=== PATIENT | female | born 1970 | race Two or more races ===

== ENCOUNTER 2025-01-29 09:56 | Inpatient (IN) | payer MEDICAID, OTHER ==
[~2025-01-29] VITALS: Ht 162.6 cm; Wt 86.3 kg
--- NOTE | 2025-01-29 11:28 | DVH ---
CLINICAL INDICATION: Knee pain x 3 weeks TECHNIQUE: 3 radiographic views of the right knee were obtained. Comparison: None FINDINGS/IMPRESSION: There is no evidence of acute fracture or dislocation. The visualized joint space is well maintained. The alignment is anatomical. There is no radiopaque foreign body.
--- NOTE | 2025-01-29 12:05 | ED.PDOC ---
Musculoskeletal HPI Comments 54F presents to the ER w/ no prior MHx associated to the c/c of right lower extremity. Pt has had non traumatic non radiating pain to the right patella. Pt notes on trying over the counter medications for which did not help. Pt is unable to ambulate w/ the right leg due from the pain for which has been worsening over the past few weeks. Pt has also recently moved from [place]. Denies trauma to the knee or recent fall Denies skin color changes around the knee Denies masses around the knee Denies popping/locking/giving out of the knee Denies fever chills night sweats nausea vomiting Denies previous surgeries to the knee nor significant injury Chief Complaint: Lower Extremity Time Seen by MD: 11:45 Reviewed Notes: Nurses Notes, Medications, Allergies Allergies: Coded Allergies: Penicillins (Verified Allergy, Unknown, 01/29/25) Home Meds Reported Medications Alprazolam (Xanax) 1 Mg Tab, 1 TAB PO HS, #60 TAB 01/29/25 Losartan Potassium (Losartan Potassium) 100 Mg Tab, 1 TAB PO DAILY 01/29/25 Rosuvastatin Calcium (Rosuvastatin Calcium) 20 Mg Tab, 1 TAB PO HS 01/29/25 Information Source: Patient Mode of Arrival: Wheelchair Location: Right Extremity Location: Knee Timing: Weeks Prehospital treatment: None Severity: Moderate Able to Move Extremity: No Bear Weight: Limited Pain: Severe Hand Dominance: Right Mechanism: Other (fal) Circumstances: Tripped Onset of Symptoms: Spontaneous Symptoms: Pain DVT Risk Factors: NONE Associated signs and symptoms: Knee pain Past Medical History PAST MEDICAL HISTORY: Denies Surgical History: Denies all surgeries ELEVATOR SERVICE MECHANIC History: No Pertinent ELEVATOR SERVICE MECHANIC History Family History Family History: Reviewed,noncontributory to illness, Unknown Social History Smoker: Non-Smoker Alcohol: Denies ETOH Use Drugs: Denies Drug Use Lives In: Home Constitutional: denies: chills, diaphoresis, fatigue, fever, malaise, sweats, weakness, others EENTM: denies: blurred vision, double vision, ear bleeding, ear discharge, ear drainage, ear pain, ear ringing, eye pain, eye redness, hearing loss, mouth pain, mouth swelling, nasal discharge, nose bleeding, nose congestion, nose pain, photophobia, tearing, throat pain, throat swelling, voice changes, others Respiratory: denies: cough, hemoptysis, orthopnea, SOB at rest, shortness of breath, SOB with excertion, stridor, wheezing, others Cardiovascular: denies: chest pain, dizzy spells, diaphoresis, Dyspnea on exertion, edema, irregular heart beat, left arm pain, lightheadedness, palpitations, PND, syncope, others Gastrointestinal: denies: abdomen distended, abdominal pain, blood streaked bowels, constipated, diarrhea, dysphagia, difficulty swallowing, hematemesis, melena, nausea, poor appetite, poor fluid intake, rectal bleeding, rectal pain, vomiting, others Genitourinary: denies: abnormal vagina bleeding, burning, dyspareunia, dysuria, flank pain, frequency, hematuria, incontinence, pain, , vagina discharge, urgency, others Neurological: denies: dizziness, fainting, headache, left sided numbness, left sided weakness, numbness, paresthesia, pre-existing deficit, right sided numbness, right sided weakness, seizure, speech problems, tingling, tremors, weakness, others Musculoskeletal: reports: others (knee pain); denies: back pain, gout, joint pain, joint swelling, muscle pain, muscle stiffness, neck pain Integumetry: denies: bruises, change in color, change in hair/nails, dryness, laceration, lesions, lumps, rash, wounds, others Allergic/Immunocompromised: denies: Difficulty Healing, Frequent Infections, Hives, Itching, others Hematologic/Lymphatic: denies: anemia, blood clots, easy bleeding, easy bruising, swollen glands, others Endocrine: denies: excessive hunger, excessive sweating, excessive thirst, excessive urination, flushing, intolerance to cold, intolerance to heat, unex plained weight gain, unexplained weight loss, others Psychiatric: denies: anxiety, bipolar disorder, depression, hopeless, panic disorder, schizophrenia, sleepless, suicidal, others All Other Systems: Reviewed and Negative Physical Exam General Appearance: No Apparent Distress, Normal HEENT: Normal ENT Inspection, Pharynx Normal, TMs Normal Neck: Full Range of Motion, Non-Tender, Normal, Normal Inspection Respiratory: Chest Non-Tender, Lungs Clear, No Accessory Muscle Use, No Respiratory Distress, Normal Breath Sounds Cardiovascular: No Edema, No JVD, No Murmur, No Gallop, Normal Peripheral Puls es, Regular Rate/Rhythm Breast Exam: Deferred Gastrointestinal: No Organomegaly, Non Tender, No Pulsatile Mass, Normal Bowel Sounds, Soft Genitalia: Deferred Pelvic: Deferred Rectal: Deferred Extremities: No calf tenderness, Normal capillary refill, Normal inspection, Normal range of motion, Non-tender, No pedal edema Musculoskeletal : Location: Right Extremity Location: Knee (no gross abnormality to patella on inspection, no echymosis, swelling or open wounds, subjective pain with flexion and extension of knee.) Apperance: Normal Neurologic: Alert, streaming media specialist II-XII nml as Tested, No Motor Deficits, Normal Affect, Normal Mood, No Sensory Deficits Cerebellar Function: Normal Reflexes: Normal Skin: Dry, Normal Color, Warm Lymphatic: No Adenopathy Was a procedure done? Was a procedure done?: No Differential Diagnosis EXT Differential Diagnosis: Deep Vein Thrombosis, Fracture, Sprain, Dislocation, Bursitis, Other X-Ray, Labs, Meds, VS Vital Signs Date Time Temp Pulse Resp B/P (MAP) Pulse Ox O2 Delivery O2 Flow Rate FiO2 01/29/25 15:17 65 18 139/77 01/29/25 14:30 97.7 65 18 151/74 (99) 98 97.7 01/29/25 14:30 65 18 151/74 01/29/25 14:30 Room Air* 0 21 01/29/25 10:10 98.4 80 18 156/92 (113) 97 98.4 Lab Test 01/29/25 13:19 Range/Units White Blood Count 5.2 4.4-10.8 10^3/uL Red Blood Count 4.23 4.0-5.20 10^6/uL Hemoglobin 12.7 12.2-16.2 g/dL Hematocrit 37.7 36.0-46.0 % Mean Corpuscular Volume 89.0 80.0-100.0 fL Mean Corpuscular Hemoglobin 30.1 28.0-32.0 pg Mean Corpuscular Hemoglobin Concent 33.8 32.0-36.0 g/dL Red Cell Distribution Width 14.5 H 11.8-14.3 % Platelet Count 270 140-450 10^3/uL Mean Platelet Volume 7.2 6.9-10.8 fL Neutrophils (%) (Auto) 41.9 37.0-80.0 % Lymphocytes (%) (Auto) 48.2 10.0-50.0 % Monocytes (%) (Auto) 8.5 0.0-12.0 % Eosinophils (%) (Auto) 0.5 0.0-7.0 % Basophils (%) (Auto) 0.9 0.0-2.0 % Neutrophils # (Auto) 2.2 1.6-8.6 10 ^3/uL Lymphocytes # (Auto) 2.5 0.4-5.4 10 ^3/uL Monocytes # (Auto) 0.4 0-1.3 10 ^3/uL Eosinophils # (Auto) 0 0-0.8 10 ^3/uL Basophils # (Auto) 0 0-0.2 10 ^3/uL Nucleated Red Blood Cells 0.1 % Erythrocyte Sedimentation Rate 7 0-20 mm/hr Sodium Level 141 136-145 mmol/L Potassium Level 3.8 3.5-5.1 mmol/L Chloride Level 107 98-107 mmol/L Carbon Dioxide Level 26 20-31 mmol/L Anion Gap 8 5-15 Blood Urea Nitrogen 12 9-23 mg/dL Creatinine 0.74 0.550-1.02 mg/dL Glomerular Filtration Rate Calc 97 >90 mL/min BUN/Creatinine Ratio 16.2 10.0-20.0 Serum Glucose 107 H 74-106 mg/dL Calcium Level 9.3 8.7-10.4 mg/dL C-Reactive Protein High Sensitivity 1.06 H <1.0 mg/dL PATIENT: AMANDAANNACCT: [id number]: [id number] : 1970 LOC: ER ROOM / BED: / AGE / SEX: 54 / F ADM STATUS: REG ER SERVICE 1211 ORDERING PHYSICIAN: PELON VALLADARES NP PROCEDURE(s): RLDVT - RT Lower DVT REASON: PAIN TO RLE ORDER NUMBER(s): [id number], ACCESSION NUMBER(s): [id number] Technique: Real-time ultrasound imaging, with color Doppler and compression of the right common femoral vein, femoral vein, greater saphenous vein, and popliteal vein. Indication: PAIN TO RLE Comparison: None Findings: There is normal compressibility and flow augmentation in all of the imaged deep veins. There are no filling defects. Impression: No evidence of DVT in the right lower extremity ATED BY: RAHAT DUNCAN MD DICTATED DATE/TIME: 01/29/251312 SIGNED BY: RAHAT DUNCAN MD SIGNED DATE/TIME: 01/29/251312 CC: PATIENT: DIPESH PATEL ACCT: [id number] UNIT: [id number] : 1970 LOC: ER ROOM / BED: / AGE / SEX: 54 / F ADM STATUS: REG ER SERVICE 1050 ORDERING PHYSICIAN: PELON VALLADARES INDUSTRIAL GAS PRODUCTION OPERATOR PROCEDURE(s): RKN3 - R KNEE 3V XRAY REASON: Knee pain x 3 weeks ORDER NUMBER(s): [id number], ACCESSION NUMBER(s): [id number] CLINICAL INDICATION: Knee pain x 3 weeks TECHNIQUE: 3 radiographic views of the right knee were obtained. Comparison: None FINDINGS/IMPRESSION: There is no evidence of acute fracture or dislocation. The visualized joint space is well maintained. The alignment is anatomical. There is no radiopaque foreign body. ATED BY: DENISE COVARRUBIAS MD DICTATED DATE/TIME: 01/29/251124 SIGNED BY: DENISE COVARRUBIAS MD SIGNED DATE/TIME: 01/29/251124 CC: X-Ray, Labs, Meds, VS Comment 54F presents to the ER w/ no prior MHx associated to the c/c of right lower extremity. The patient presents with s/s consistent with intractable knee pain CBC, BMP, UA, SED RATE, CRP ORDERED KNEE XRAY NEGATIVE FOR ACUTE FINDINGS ORDERED US OF LOWER EXTREMITY TO R/O DVT IN THE ER THE PATIENT RECEIVED MORPHINE X1 WITH NO ADVERSE REACTIONS. RESULTS WERE RELAYED TO THE PATIENT THE PATIENT FEELS UNCOMFORTABLE BEING DISCHARGED FROM AT THIS TIME DUE TO PAIN AND INABILITY TO BEAR WEIGHT ON THE AFFECTED EXTREMITY. The patient's workup reveals that the patient needs further evaluation and/or treatment for the above medical conditions. Patient verbalized understanding of the above and is awaiting further evaluation by the admitting service. Time of 1ST Reevaluation: 12:15 Reevaluation 1ST: Unchanged Patient Education/Counseling: Diagnosis, Treatment, Prognosis Family Education/Counseling: No Family Present Departure 1 Departure Time of Disposition: 13:53 Impression: Primary Impression: Intractable pain Additional Impression: Knee pain Qualified Codes: M25.561 - Pain in right knee Disposition: 01 HOME / SELF CARE / HOMELESS Condition: Fair Critical Care Note Critical Care Time?: No Stability Stability form required: No Heart Score Heart Score: Heart Score Response (Comments) Value History N/A 0 EKG N/A 0 Age N/A 0 Risk Factors N/A 0 Troponin N/A 0 Total 0 I personally scribed for PELON VALLADARES NP ([email or web address]) on 01/29/25 at 12:05. E lectronically submitted by Dago Stout ([email or web address]). PELON VALLADARES NP Jan 29, 2025 12:05
--- NOTE | 2025-01-29 13:15 | DVH ---
Technique: Real-time ultrasound imaging, with color Doppler and compression of the right common femo ral vein, femoral vein, greater saphenous vein, and popliteal vein. Indication: PAIN TO RLE Comparison: None Findings: There is normal compressibility and flow augmentation in all of the imaged deep veins. There are no f illing defects. Impression: No evidence of DVT in the right lower extremity
[2025-01-29 13:40] LABS: Basophils # (auto) 0 10 ^3/uL (0-0.2); Basophils % (auto) 0.9 % (0.0-2.0); Eosinophils # (auto) 0 10 ^3/uL (0-0.8); Eosinophils % (auto) 0.5 % (0.0-7.0); Hematocrit 37.7 % (36.0-46.0); Hemoglobin 12.7 g/dL (12.2-16.2); Lymphocytes # (auto) 2.5 10 ^3/uL (0.4-5.4); Lymphocytes % (auto) 48.2 % (10.0-50.0); Mean Corpuscular Hemoglobin 30.1 pg (28.0-32.0); Mean Corpuscular Hgb Conc. 33.8 g/dL (32.0-36.0); Monocytes # (auto) 0.4 10 ^3/uL (0-1.3); Monocytes % (auto) 8.5 % (0.0-12.0); Neutrophils # (auto) 2.2 10 ^3/uL (1.6-8.6); Neutrophils % (auto) 41.9 % (37.0-80.0); Nucleated Red Blood Cells % 0.1 %; Platelet Count (auto) 270 10^3/uL (140-450); Red Blood Cells 4.23 10^6/uL (4.0-5.20); Red Cell Distribution Width 14.5 % (11.8-14.3); White Blood Cell 5.2 10^3/uL (4.4-10.8)
[2025-01-29 13:51] LABS: Chloride 107 mmol/L (98-107); Potassium 3.8 mmol/L (3.5-5.1); Sodium 141 mmol/L (136-145)
[2025-01-29 13:52] LABS: Anion Gap 8 (5-15); Calcium 9.3 mg/dL (8.7-10.4); Carbon Dioxide 26 mmol/L (20-31)
[2025-01-29 13:57] LABS: BUN/Creatinine Ratio 16.2 (10.0-20.0); Blood Urea Nitrogen 12 mg/dL (9-23); Glucose 107 mg/dL (74-106)
[2025-01-29 14:13] LABS: Erythrocyte Sedimentation Rate 7 mm/hr (0-20)
[2025-01-29] MEDS: MORPHINE SULFATE 4 MG/ML SYR/VIAL IV ONE (14:30)
[2025-01-29 15:29] LABS: CRP High Sensitivity 1.06 mg/dL (<1.0)
[2025-01-29] MEDS ORDERED: DOCUSATE SOD 100 MG CAP PO PRN (16:45)
[2025-01-29] MEDS ORDERED: ACETAMINOPHEN 325 MG TAB PO PRN (16:45)
[2025-01-29] MEDS ORDERED: ONDANSETRON HCL 4 MG/2 ML VIAL IV PRN (16:45)
[2025-01-29] MEDS ORDERED: ALPR1TAB2 PO (16:47)
[2025-01-29] MEDS ORDERED: LOSA-535 PO (16:47)
[2025-01-29] MEDS ORDERED: ROSU20TA56 PO (16:47)
--- NOTE | 2025-01-29 16:58 | DVHHP2 ---
History of Present Illness Reason for Visit: right knee pain History of Present Illness Lainey Bautista is a 54-year-old female with past medical history of asthma, hypertension, hyperlipidemia, anxiety, and depression who came to the hospital for right knee pain. Patient states about 1 month ago she tripped and hurt her knee caring boxes. She has been moving, and busy and hoping the pain would get better. The pain significantly worsened over the weekend and she is having difficulty walking prompting her to come to the hospital. Cardiovascular: HTN, hyperipidemia Pulmonary: Asthma Psych: Anxiety, Depression Past Surgical History: None Smoke: No ALCOHOL: none Drugs: None Lives: with Family Domestic Violence: Neg Review of Systems Constitutional: No: Fever, Chills, Sweats, Weakness, Malaise, Other Eyes: No: Pain, Vision change, Conjunctivae inflammation, Eyelid inflammation, Other, Redness ENT: No: Ear pain, Ear discharge, Nose pain, Nose discharge, Nose congestion, Mouth pain, Mouth swelling, Throat pain, Throat swelling, Other Respiratory: No: Cough, Dry, Shortness of breath, SOB with excertion, Wheezing, Hemoptysis, Pleuritic Pain, Sputum, Wheezing, Other Cardiovascular: No: Chest Pain, Palpitations, Orthopnea, Paroxysmal Noc. Dyspnea, Edema, Lt Headedness, Other Gastrointestinal: No: Nausea, Vomiting, Abdominal Pain, Diarrhea, Constipation, Melena, Hematochezia, Other Genitourinary: No Dysuria, No Frequency, No Incontinence, No Hematuria, No Retention, No Other Musculoskeletal: leg pain (right knee); No: other, neck pain, shoulder pain, arm pain, back pain, hand pain, foot pain Skin: No: Rash, Lesions, Jaundice, Bruising, Other Neurological: No: Weakness, Numbness, Incoordination, Change in speech, Confusion, Seizures, Other Allergies: Coded Allergies: Penicillins (Verified Allergy, Unknown, 01/29/25) Exam Vital Signs Vital Signs Date Time Temp Pulse Resp B/P (MAP) Pulse Ox O2 Delivery O2 Flow Rate FiO2 01/29/25 15:17 65 18 139/77 01/29/25 14:30 97.7 98 97.7 01/29/25 14:30 Room Air* 0 21 General Appearance: Alert, Oriented X3, Cooperative, mild distress HEENT: Atraumatic, PERRLA Respiratory: Clear to auscultation, Normal air movement Cardiovascular: Regular rate, Normal S1, Normal S2, No murmurs Abdominal: Normal bowel sounds, Soft, No tenderness, No hepatospenomegaly Extremities: No clubbing, No cyanosis, No edema, Normal pulses, Other (Pain to right knee) Skin: No rashes, No breakdown, No significant lesion Neuro: Normal speech, Strength at 5/5 X4 ext, Normal tone, Other (using crutches due to pain right knee, unable to bear weight) Psych/Mental Status: Mental status NL, Mood NL Labs/Xrays Labs Test 01/29/25 13:19 Range/Units White Blood Count 5.2 4.4-10.8 10^3/uL Red Blood Count 4.23 4.0-5.20 10^6/uL Hemoglobin 12.7 12.2-16.2 g/dL Hematocrit 37.7 36.0-46.0 % Mean Corpuscular Volume 89.0 80.0-100.0 fL Mean Corpuscular Hemoglobin 30.1 28.0-32.0 pg Mean Corpuscular Hemoglobin Concent 33.8 32.0-36.0 g/dL Red Cell Distribution Width 14.5 H 11.8-14.3 % Platelet Count 270 140-450 10^3/uL Mean Platelet Volume 7.2 6.9-10.8 fL Neutrophils (%) (Auto) 41.9 37.0-80.0 % Lymphocytes (%) (Auto) 48.2 10.0-50.0 % Monocytes (%) (Auto) 8.5 0.0-12.0 % Eosinophils (%) (Auto) 0.5 0.0-7.0 % Basophils (%) (Auto) 0.9 0.0-2.0 % Neutrophils # (Auto) 2.2 1.6-8.6 10 ^3/uL Lymphocytes # (Auto) 2.5 0.4-5.4 10 ^3/uL Monocytes # (Auto) 0.4 0-1.3 10 ^3/uL Eosinophils # (Auto) 0 0-0.8 10 ^3/uL Basophils # (Auto) 0 0-0.2 10 ^3/uL Nucleated Red Blood Cells 0.1 % Erythrocyte Sedimentation Rate 7 0-20 mm/hr Sodium Level 141 136-145 mmol/L Potassium Level 3.8 3.5-5.1 mmol/L Chloride Level 107 98-107 mmol/L Carbon Dioxide Level 26 20-31 mmol/L Anion Gap 8 5-15 Blood Urea Nitrogen 12 9-23 mg/dL Creatinine 0.74 0.550-1.02 mg/dL Glomerular Filtration Rate Calc 97 >90 mL/min BUN/Creatinine Ratio 16.2 10.0-20.0 Serum Glucose 107 H 74-106 mg/dL Calcium Level 9.3 8.7-10.4 mg/dL C-Reactive Protein High Sensitivity 1.06 H <1.0 mg/dL TECHNIQUE: 3 radiographic views of the right knee were obtained. FINDINGS/IMPRESSION: There is no evidence of acute fracture or dislocation. The visualized joint space is well maintained. The alignment is anatomical. There is no radiopaque foreign body. Ultrasound imaging, with color Doppler and compression of the right common femoral vein, femoral vein, greater saphenous vein, and popliteal vein. Findings: There is normal compressibility and flow augmentation in all of the imaged deep veins. There are no filling defects. Impression: No evidence of DVT in the right lower extremity Assessment/Plan Assessment/Plan Assessment: Knee pain, right, Hypertension, Hyperlipidemia, Anxiety, Depression, Plan: Admit to Med-Surg, MRI of right knee, Physical therapy evaluation, Pain management, Home medications reconciled, Plan discussed with: Patient My Orders Orders - ARAVIND ROMAN CLINICAL TRIAL ASSISTANT Procedure Category Date Status Time Admit ADMIT 01/29/25 Transmitted 16:37 Code Status CODE 01/29/25 Transmitted 16:37 2 Gm Sodium Diet DIET 01/29/25 Transmitted Dinner Hydrocodone-Acet PHA 01/29/25 Transmitted 5/325mg Tab ([place] 16:45 Ondansetron Hcl PHA 01/29/25 Transmitted (Zofran) 16:45 Docusate Sodium PHA 01/29/25 Transmitted Capsule ([place] 16:45 Complete Blood Count LAB 01/30/25 Verified 04:00 Comprehensive LAB 01/30/25 Verified Metabolic Panel 04:00 Pt Request For Service PT 01/29/25 Transmitted 16:37 Condition: Serious TIAN 01/29/25 Transmitted 16:37 Acetaminophen Tablet PHA 01/29/25 Transmitted (Tylenol Tablet) 16:45 Rt Knee With Out Con MRI 01/29/25 Transmitted 16:37 Date of Service: Jan 29, 2025 Billing Provider: ARAVIND ROMAN Common Visit Codes: [id number] INP/OBS CARE (MOD) ARAVIND ROMAN Jan 29, 2025 16:58
[2025-01-29] MEDS: HYDROcodone-ACET 5/325MG TAB PO PRN (18:07)
[2025-01-29 21:00] VITALS: BP 148/80; PULSE 64; RESP 18; TEMP 97.8; O2SAT 100
[2025-01-29] MEDS: ATORVASTATIN 20 MG TAB PO SCH (21:16)
[2025-01-29] MEDS: ALPRAZolam 0.5 MG TAB PO SCH (21:17)
[2025-01-30] VITALS (7 sets, daily range): BP systolic 123–156; BP diastolic 65–95; PULSE 64–81; RESP 16–19; TEMP 97.5–98.3; O2SAT 97–100
[2025-01-30 03:01] LABS: Urine Bacteria None Seen /hpf (None Seen)
[2025-01-30 03:23] LABS: Urine Blood Negative /uL (Negative); Urine Clarity Clear (Clear); Urine Color Light-Yellow (Yellow); Urine Protein, UAD Negative (Negative); Urine Specific Gravity 1.009 (1.001-1.035); Urine Squamous Epithelial Cell FEW /hpf (<5); Urine Urobilinogen Normal (Negative); Urine WBC 2 /HPF (0-5)
[2025-01-30 04:31] LABS: Basophils # (auto) 0 10 ^3/uL (0-0.2); Basophils % (auto) 0.4 % (0.0-2.0); Eosinophils # (auto) 0.1 10 ^3/uL (0-0.8); Eosinophils % (auto) 1.2 % (0.0-7.0); Hematocrit 41.2 % (36.0-46.0); Hemoglobin 13.6 g/dL (12.2-16.2); Lymphocytes # (auto) 3.4 10 ^3/uL (0.4-5.4); Lymphocytes % (auto) 54.4 % (10.0-50.0); Mean Corpuscular Hemoglobin 29.7 pg (28.0-32.0); Mean Corpuscular Hgb Conc. 33.1 g/dL (32.0-36.0); Mean Corpuscular Volume 89.9 fL (80.0-100.0); Monocytes # (auto) 0.6 10 ^3/uL (0-1.3); Monocytes % (auto) 9.4 % (0.0-12.0); Neutrophils # (auto) 2.1 10 ^3/uL (1.6-8.6); Neutrophils % (auto) 34.6 % (37.0-80.0); Nucleated Red Blood Cells % 0.1 %; Platelet Count (auto) 275 10^3/uL (140-450); Red Blood Cells 4.58 10^6/uL (4.0-5.20); Red Cell Distribution Width 14.7 % (11.8-14.3); White Blood Cell 6.2 10^3/uL (4.4-10.8)
[2025-01-30 04:41] LABS: Alanine Aminotransferase 32 U/L (7-40); Albumin 4.4 g/dL (3.2-4.8); Alkaline Phosphatase 94 U/L (46-116); Anion Gap 11 (5-15); Aspartate Aminotransferase 19 U/L (<34); BUN/Creatinine Ratio 13.5 (10.0-20.0); Blood Urea Nitrogen 10 mg/dL (9-23); Calcium 9.4 mg/dL (8.7-10.4); Carbon Dioxide 23 mmol/L (20-31); Chloride 106 mmol/L (98-107); Glucose 83 mg/dL (74-106); Potassium 3.8 mmol/L (3.5-5.1); Sodium 140 mmol/L (136-145)
[2025-01-30 04:42] LABS: Bilirubin, Total 0.6 mg/dL (0.2-1.0)
[2025-01-30] MEDS: LOSARTAN POTASSIUM 50 MG TAB PO SCH (09:23)
--- NOTE | 2025-01-30 09:24 | DVH ---
CLINICAL HISTORY: right knee pain. History of fall injury 1 month ago. COMPARISON: Radiographs dated 01/29/2025. TECHNIQUE: Multisequence multiplanar MRI images of the right knee were obtained without contrast. FINDINGS: Cruciate ligaments: ACL and PCL are intact. Extensor mechanism: Quadriceps mechanism and patellar tendon are intact. Mild edema in the superolate ral aspect of Hoffa's fat pad, may be seen with impingement. Collateral ligaments: Medial and lateral collateral ligaments are intact and otherwise unremarkable. Menisci: No significant degeneration. No evidence of meniscal tear. 0.5 cm cystic structure adjacent to the posterior aspect of the posterior horn/ posterior root attachment junction of the medial menis cus, likely ganglion cyst. Cartilage: [id number] chondral fissuring at the junction of the anterior aspect of the weight-b earing zone of the medial femoral condyle and medial trochlear cartilage with associated mild subchon dral cystic change. Bones: No acute fracture or focal marrow contusion. Joint fluid: No significant joint effusion. No synovitis or loose bodies. Other: No other significant findings. IMPRESSION: 1. 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 2. Mild edema of the superolateral aspect of Hoffa's fat pad, may be seen with impingement. 3. Small cyst posterior to the posterior horn/posterior root junction of the medial meniscus, likely ganglion cyst.
--- NOTE | 2025-01-30 14:44 | DVHPNRES ---
Progress Note Date Seen: Jan 30, 2025 Resident Creating Document: AYLIN MOHAMUD SABINO Has the PT tested + for MRSA If YES, has PT been informed?: No Medical Necessity Reason Pt with a Central, PICC or Fol: No Subjective Review of Systems Lainey Bautista is a 54-year-old female with past medical history of asthma, hypertension, hyperlipidemia, anxiety, and depression who came to the hospital for right knee pain. Patient states about 1 month ago she tripped and hurt her knee caring boxes. She has been moving, and busy and hoping the pain would get better. The pain significantly worsened over the weekend and she is having difficulty walking prompting her to come to the hospital. Past medical history: Hypertension, dyslipidemia, anxiety, depression, asthma Patient seen and examined at bedside. Patient is complaining of severe right knee pain. Patient reports: No new complaints Changes from previous H/P or p: Changes Objective vital signs Vital Sign Date Time Temp Pulse Resp B/P (MAP) Pulse Ox O2 Delivery O2 Flow Rate FiO2 01/30/25 12:31 98.3 64 19 156/83 (107) 100 98.3 01/29/25 14:30 Room Air* 0 21 Total Intake and Output 01/29/25 01/29/25 01/30/25 15:00 23:00 07:00 Intake Total 0 ml Balance 0 ml medications Current Medications Medications Dose Ordered Sig/Pilar Route Start Time Stop Time Status Last Admin Dose Admin Acetaminophen/ Hydrocodone Bitart 1 tab Q4HP PRN PO 01/29/25 16:45 01/30/25 14:15 1 TAB Ondansetron HCl 4 mg Q4HP PRN IV 01/29/25 16:45 Docusate Sodium 100 mg BIDPRN PRN PO 01/29/25 16:45 Acetaminophen 650 mg Q6HP PRN PO 01/29/25 16:45 Alprazolam 1 mg HS PO 01/29/25 22:00 01/29/25 21:17 1 MG Losartan Potassium 100 mg DAILY PO 01/30/25 10:00 01/30/25 09:23 100 MG Atorvastatin Calcium 40 mg HS PO 01/29/25 22:00 01/29/25 21:16 40 MG Examination General Appearance: Alert, Oriented X3, Cooperative, No acute distress HEENT: Atraumatic, PERRLA, EOMI, Mucous membrane moist/pink Respiratory: Clear to auscultation, Normal air movement Cardiovascular: Regular rate, Normal S1, Normal S2, No murmurs, no chest wall tenderness Abdominal: Normal bowel sounds, Soft, No tenderness, No hepatospenomegaly, No masses Extremities: Right knee pain is severely tender, due to pain could not perform physical exam Skin: No rashes, No breakdown, No significant lesion Neuro: Normal gait, Normal speech, Strength at 5/5 X4 ext, Normal tone, Sensation intact, Cranial nerves 3-12 NL, Reflexes 2+ Psych/Mental Status: Mental status NL, Mood NL laboratory and microbiology Laboratory Tests 01/30/25 03:27 Test 01/30/25 03:27 Range/Units Serum Glucose 83 74-106 mg/dL Labs and/or images reviewed: Labs reviewed by me, Image(s) reviewed by me Problem List/Assessment/Plan Problem List/Assessment/Plan Intractable/severe right knee pain, likely due to traumatic injury/chondromalacia Traumatic right knee injury Asthma Hypertension Anxiety/depression * Dyslipidemia MRI shows, 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 * Consulted orthopedics DIET: Cardiac diet DVT PROPHYLAXIS: Lovenox GI PROPHYLAXIS:: Protonix CODE STATUS: Goal of care discussed for more than 18 minutes, full code DISPOSITION: Med/surge Patient's status and plan discussed with the patient. Case discussed with Dr. Byrd. Plan discussed with: Patient, Other My Orders My Orders Orders - AYLIN MOHAMUD Procedure Category Date Status Time * Orthopedic Consult CONS 01/30/25 Verified 14:39 AYLIN MOHAMUD RESDIENT Jan 30, 2025 14:44
[2025-01-30] MEDS: ACETAMINOPHEN 325 MG TAB PO SCH (16:18)
[2025-01-30] MEDS: PANTOPRAZOLE 40 MG/10 ML VIAL INJ IV ONE (16:19)
[2025-01-30] MEDS: KETOROLAC TROMETH 30 MG/ML 1ML VIAL IV SCH (17:47)
[2025-01-31] VITALS (8 sets, daily range): BP systolic 129–176; BP diastolic 78–95; PULSE 60–81; RESP 18–20; TEMP 96.7–98.7; O2SAT 95–100
[2025-01-31 06:01] LABS: Basophils # (auto) 0.1 10 ^3/uL (0-0.2); Basophils % (auto) 1.9 % (0.0-2.0); Eosinophils # (auto) 0.1 10 ^3/uL (0-0.8); Eosinophils % (auto) 1.5 % (0.0-7.0); Hematocrit 44.5 % (36.0-46.0); Lymphocytes # (auto) 2.4 10 ^3/uL (0.4-5.4); Lymphocytes % (auto) 46.1 % (10.0-50.0); Mean Corpuscular Hemoglobin 30.2 pg (28.0-32.0); Mean Corpuscular Hgb Conc. 33.8 g/dL (32.0-36.0); Mean Corpuscular Volume 89.4 fL (80.0-100.0); Monocytes # (auto) 0.5 10 ^3/uL (0-1.3); Monocytes % (auto) 9.7 % (0.0-12.0); Neutrophils # (auto) 2.1 10 ^3/uL (1.6-8.6); Neutrophils % (auto) 40.8 % (37.0-80.0); Nucleated Red Blood Cells % 0.1 %; Platelet Count (auto) 303 10^3/uL (140-450); Red Blood Cells 4.97 10^6/uL (4.0-5.20); Red Cell Distribution Width 14.6 % (11.8-14.3); White Blood Cell 5.3 10^3/uL (4.4-10.8)
[2025-01-31 06:16] LABS: Potassium 4.5 mmol/L (3.5-5.1); Sodium 141 mmol/L (136-145)
[2025-01-31 06:17] LABS: Anion Gap 10 (5-15); Calcium 9.8 mg/dL (8.7-10.4); Carbon Dioxide 24 mmol/L (20-31)
[2025-01-31 06:22] LABS: Blood Urea Nitrogen 15 mg/dL (9-23); Glucose 80 mg/dL (74-106)
[2025-01-31 06:24] LABS: Chloride 107 mmol/L (98-107)
[2025-01-31 08:03] LABS: INR 0.93 (0.9-1.15); Partial Thromboplastin Time 25.1 SEC (24.5-34.5); Prothrombin Time 9.9 sec (9.3-11.8)
[2025-01-31] MEDS: PANTOPRAZOLE 40 MG/10 ML VIAL INJ IV SCH (09:41)
--- NOTE | 2025-01-31 15:24 | DVHPNRES ---
Progress Note Date Seen: Jan 31, 2025 Resident Creating Document: AYLIN MOHAMUD SABINO Has the PT tested + for MRSA If YES, has PT been informed?: No Medical Necessity Reason Pt with a Central, PICC or Fol: No Subjective Review of Systems Patient seen and examined at the bedside. Patient is still complaining of severe right knee pain. Patient reports: No new complaints Objective vital signs Vital Sign Date Time Temp Pulse Resp B/P (MAP) Pulse Ox O2 Delivery O2 Flow Rate FiO2 01/31/25 13:00 98.6 81 20 156/88 (110) 100 98.6 01/31/25 08:00 Room Air* 0 21 Total Intake and Output 01/30/25 01/30/25 01/31/25 15:00 23:00 07:00 Intake Total 200 ml Balance 200 ml medications Current Medications Medications Dose Ordered Sig/Pilar Route Start Time Stop Time Status Last Admin Dose Admin Acetaminophen/ Hydrocodone Bitart 1 tab Q4HP PRN PO 01/29/25 16:45 01/31/25 09:42 1 TAB Ondansetron HCl 4 mg Q4HP PRN IV 01/29/25 16:45 Docusate Sodium 100 mg BIDPRN PRN PO 01/29/25 16:45 Alprazolam 1 mg HS PO 01/29/25 22:00 01/30/25 21:22 1 MG Losartan Potassium 100 mg DAILY PO 01/30/25 10:00 01/31/25 09:42 100 MG Atorvastatin Calcium 40 mg HS PO 01/29/25 22:00 01/30/25 21:22 40 MG Acetaminophen 650 mg Q6HR PO 01/30/25 15:45 01/31/25 12:51 650 MG Ketorolac Tromethamine 30 mg Q6HR IV 01/30/25 18:00 02/04/25 17:59 01/31/25 12:51 30 MG Pantoprazole Sodium 40 mg DAILY IV 01/31/25 10:00 01/31/25 09:41 40 MG Examination General Appearance: Alert, Oriented X3, Cooperative, No acute distress HEENT: Atraumatic, PERRLA, EOMI, Mucous membrane moist/pink Respiratory: Clear to auscultation, Normal air movement Cardiovascular: Regular rate, Normal S1, Normal S2, No murmurs, no chest wall tenderness Abdominal: Normal bowel sounds, Soft, No tenderness, No hepatospenomegaly, No masses Extremities: Right knee pain is severely tender, due to pain could not perform physical exam Skin: No rashes, No breakdown, No significant lesion Neuro: Normal gait, Normal speech, Strength at 5/5 X4 ext, Normal tone, Sensation intact, Cranial nerves 3-12 NL, Reflexes 2+ Psych/Mental Status: Mental status NL, Mood NL laboratory and microbiology Laboratory Tests 01/31/25 04:50 Test 01/31/25 04:50 Range/Units Serum Glucose 80 74-106 mg/dL Labs and/or images reviewed: Labs reviewed by me, Image(s) reviewed by me Problem List/Assessment/Plan Problem List/Assessment/Plan Intractable/severe right knee pain, likely due to traumatic injury/chondromalacia Traumatic right knee injury Asthma Hypertension Anxiety/depression * Dyslipidemia MRI shows, 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 * Consulted orthopedics * Physical therapy DIET: Cardiac diet DVT PROPHYLAXIS: Lovenox GI PROPHYLAXIS:: Protonix CODE STATUS: Goal of care discussed for more than 18 minutes, full code DISPOSITION: Med/surge Patient's status and plan discussed with the patient. Case discussed with Dr. Byrd. Plan discussed with: Patient, Other (RN) My Orders My Orders Orders - AYLIN MOHAMUD Procedure Category Date Status Time Acetaminophen Tablet PHA 01/30/25 In Process (Tylenol Tablet) 15:45 Ketorolac Injection PHA 01/30/25 In Process (Toradol Injection) 18:00 Pantoprazole PHA 01/31/25 In Process (Protonix) 10:00 Drug Screen LAB 01/31/25 Logged 07:07 AYLIN MOHAMUD RESDISNEHA Jan 31, 2025 15:24
--- NOTE | 2025-01-31 19:37 | DVHINCON2 ---
Consult Note Consult Consult Note Location: Inpatient [facility] Consulting Service: Hospitalist --- Reason for Consult: Evaluation of chronic right knee pain during inpatient hospitalization. --- History of Present Illness: Ms. Lainey Bautista is an inpatient who was referred by the hospitalist service for evaluation of right knee pain. The patient reports traumatic right knee pain ongoing for approximately one month, with progressive worsening over the past two weeks. She denies any history of injury, fall, or specific trauma but states she has increasing pain and limited ability to move the knee.No injury , fall , catching locking reported. Reports pain with knee ROM. No hx of surgery to right knee, no hx of injections to right knee reported. No edema, erythema, warmth to right knee reported. No other joint pain reported. No fever, chills reported. No numbness/tingling or calf pain/swelling , SOB , Chest pain reported. --- Physical Examination: General: Awake, alert, in mild discomfort Right Knee: Range of Motion: Initial ROM 10 extension to 90 flexion with worsening of pain with ROM exam Tenderness: Diffuse, global tenderness over anterior and medial knee No edema, erythema, warmth, or open skin lesions noted No joint effusion appreciated Ligamentous Exam: No instability or evidence of ACL/PCL/LCL/MCL tear Meniscal Exam: No locking, clicking, or Ritu sign Patellar: No patellar apprehension Soft calf compartment Neurovascular: Grossly intact distal sensation and motor function Capillary refill <3 seconds Dorsalis pedis and posterior tibial pulses 2+ --- Imaging: MRI Right Knee: Demonstrates grade 4 chondromalacia/advanced arthritis; no evidence of meniscal tear or ligamentous disruption. 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 No evidence of acute internal derangement on imaging or exam. Responded positively to intra-articular lidocaine injection with improved range of motion and pain control. --- Plan: In evening, Treated patient with CSI injection with 3ml of 1%lidocaine without Epi mixture with 2 mg of Kenalog 40mg/ml right knee superior lateral approch in sterile condition, pt tolerated procedure well. Outpatient orthopedic follow-up recommended post-discharge for followup in 2 [place], ER for new worsening s/s, ER return precuation for any knee infection like s/s discussed in detail with patient. Encourage gentle ROM exercises as tolerated and WBAT Hospitalist team to discharge with appropriate pain medications for right knee pain if needed, Can be discharged for Orthopedic STANDPOINT for right knee pain once Hospitalist feel all other etio/concern are ruled out Please contact Ortho for reconsult if needed DR. MONTERO AGREE WITH ABOVE PLAN AND TREATMENT PLAN Plan discussed with: Patient, Other (BEDSIDE NURSE) Visit Coding Surgery Date of Service if different f: Jan 31, 2025 Billing Provider: STELLA BERNARD Surgery Visit Codes: 77399 - INP CONSULT <80 MIN STELLA BERNARD PAC Jan 31, 2025 19:37
[2025-02-01] VITALS (8 sets, daily range): BP systolic 135–159; BP diastolic 75–97; PULSE 59–88; RESP 18–19; TEMP 96.3–98.1; O2SAT 100
--- NOTE | 2025-02-01 12:45 | DVHDSRES ---
Discharge Summary Date of Admission Resident Creating Document: AYLIN MOHAMUD RESDIENT Jan 29, 2025 at 16:37 Date of Discharge: Feb 01, 2025 Labs/Diagnostic Data: Laboratory Results Test 01/31/25 04:50 01/30/25 03:27 01/30/25 02:45 01/29/25 13:19 White Blood Count 5.3 10^3/uL (4.4-10.8) Red Blood Count 4.97 10^6/uL (4.0-5.20) Hemoglobin 15.0 g/dL (12.2-16.2) Hematocrit 44.5 % (36.0-46.0) Mean Corpuscular Volume 89.4 fL (80.0-100.0) Mean Corpuscular Hemoglobin 30.2 pg (28.0-32.0) Mean Corpuscular Hemoglobin Concent 33.8 g/dL (32.0-36.0) Red Cell Distribution Width 14.6 % (11.8-14.3) Platelet Count 303 10^3/uL (140-450) Mean Platelet Volume 7.4 fL (6.9-10.8) Neutrophils (%) (Auto) 40.8 % (37.0-80.0) Lymphocytes (%) (Auto) 46.1 % (10.0-50.0) Monocytes (%) (Auto) 9.7 % (0.0-12.0) Eosinophils (%) (Auto) 1.5 % (0.0-7.0) Basophils (%) (Auto) 1.9 % (0.0-2.0) Neutrophils # (Auto) 2.1 10 ^3/uL (1.6-8.6) Lymphocytes # (Auto) 2.4 10 ^3/uL (0.4-5.4) Monocytes # (Auto) 0.5 10 ^3/uL (0-1.3) Eosinophils # (Auto) 0.1 10 ^3/uL (0-0.8) Basophils # (Auto) 0.1 10 ^3/uL (0-0.2) Nucleated Red Blood Cells 0.1 % Prothrombin Time 9.9 sec (9.3-11.8) Prothrombin Time INR 0.93 (0.9-1.15) Activated Partial Thromboplast Time 25.1 SEC (24.5-34.5) Sodium Level 141 mmol/L (136-145) Potassium Level 4.5 mmol/L (3.5-5.1) Chloride Level 107 mmol/L (98-107) Carbon Dioxide Level 24 mmol/L (20-31) Anion Gap 10 (5-15) Blood Urea Nitrogen 15 mg/dL (9-23) Creatinine 1.00 mg/dL (0.550-1.02) Glomerular Filtration Rate Calc 68 mL/min (>90) BUN/Creatinine Ratio 15.0 (10.0-20.0) Serum Glucose 80 mg/dL (74-106) Calcium Level 9.8 mg/dL (8.7-10.4) Total Bilirubin 0.6 mg/dL (0.2-1.0) Aspartate Amino Transferase (AST) 19 U/L (<34) Alanine Aminotransferase (ALT) 32 U/L (7-40) Alkaline Phosphatase 94 U/L (46-116) Total Protein 7.0 g/dL (5.7-8.2) Albumin 4.4 g/dL (3.2-4.8) Urine Color Light-yellow (Yellow) Urine Clarity Clear (Clear) Urine pH 7.0 (5.0-9.0) Urine Specific [place] 1.009 (1.001-1.035) Urine Protein Negative (Negative) Urine Ketones Negative (Negative) Urine Blood Negative /uL (Negative) Urine Nitrite Negative (Negative) Urine Bilirubin Negative (Negative) Urine Urobilinogen Normal mg/dL (Negative) Urine Leukocyte Esterase Negative /uL (Negative) Urine RBC 1 /hpf (0 - 4) Urine Microscopic WBC 2 /HPF (0-5) Urine Squamous Epithelial Cells Few /hpf (<5) Urine Bacteria None seen /hpf (None Seen) Urine Glucose Normal mg/dL (Normal) Erythrocyte Sedimentation Rate 7 mm/hr (0-20) C-Reactive Protein High Sensitivity 1.06 mg/dL (<1.0) Other Laboratory Tests 01/31/25 04:50 Brief Hx & Hospital Course: HISTORY OF PRESENT ILLNESS: Lainey Bautista is a 54-year-old female with past medical history of asthma, hypertension, hyperlipidemia, anxiety, and depression who came to the hospital for right knee pain. Patient states about 1 month ago she tripped and hurt her knee caring boxes. She has been moving, and busy and hoping the pain would get better. The pain significantly worsened over the weekend and she is having difficulty walking prompting her to come to the hospital. Past medical history: Hypertension, dyslipidemia, anxiety, depression, asthma HOSPITAL COURSE: Patient was admitted due to intractable right knee pain. MRI performed showed, Grade 2-3 chondromalacia near the junction of the anterior aspect of the weight- bearing zone of the medial femoral condyle and medial trochlear cartilage with mild adjacent subchondral cystic change, mild edema of the superolateral aspect of Hoffa's fat pad, may be seen with impingement, and small cyst posterior to the posterior horn/posterior root junction of the medial meniscus, likely ganglion cyst. Orthopedic consulted, treated patient with CSI injection with 3ml of 1%lidocaine without Epi mixture with 2 mg of Kenalog 40mg/ml right knee superior lateral approch in sterile condition, pt tolerated procedure well and recommended outpatient follow up. Postprocedure, the patient was able to walk. On 02/01/2025, the patient was feeling better since admission. Discharge plan discussed with the patient the patient discharged home. DISCHARGE PLAN: Follow up with the PCP within 1 week of the discharge. Follow up with the Orthopedics on outpatient basis. 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 Discharge Disposition: Home Discharge Instruct/Medications Diet: Regular Activity: No Restrictions, As Tolerated Follow Up/Referral: follow up with PCP within one week after DC follow up with Orthopedics on outpatient basis [facility] Medications: Ibuprofen 400 three times daily for 10 days Tab. Acetaminnophen 650 mg three times ddaily for 10 days omeprazole 40 mg daily for 10 days Discharge Statement: "Patient was advised to return to the ER or call 911 if any headaches, dizziness, shortness of breath, chest pain, abdominal pain, bleeding, fevers, or worsening of medical condition. Patient was counseled about treatment plan, medications, possible side effects, patientverbalized understanding. All questions were answered to the best of my ability. This discharge took greater then 30 minutes in planning, reviewing documentation, counseling the patient, and discussing with other team members." ASSESSMENT ASSESSMENT Assessment taumatic knee injury AYLIN MOHAMUD [facility] Feb 01, 2025 12:45
== END 2025-02-01 18:03 | disposition home or self-care (01) | DRG 351 ==
LOC: ER 09:56 → OVERFLOW 16:37 → WEST WING 01-30 18:17
PROVIDERS: ADMIT Student in an Organized Health Care Education/Training Program; ATTEND Student in an Organized Health Care Education/Training Program
DX: M94.261 Chondromalacia, right knee (principal); E66.9 Obesity, unspecified; S89.81XA Other specified injuries of right lower leg, initial encounter; E78.5 Hyperlipidemia, unspecified; F32.A Depression, unspecified; F41.9 Anxiety disorder, unspecified; J45.909 Unspecified asthma, uncomplicated; I10 Essential (primary) hypertension; G89.29 Other chronic pain; Z88.0 Allergy status to penicillin; M25.561 Pain in right knee; Z68.1 Body mass index [BMI] 19.9 or less, adult; X58.XXXA Exposure to other specified factors, initial encounter; Y93.89 Activity, other specified; Y92.89 Other specified places as the place of occurrence of the external cause; Y99.8 Other external cause status
CPT/HCPCS: 36415; 73562; 73721; 80048; 80053; 81001; 85025; 85610; 85652; 85730; 86141; 93971; 96374; 97110; 97116; 97163; 97530; G0378; J1885; J2470

== ENCOUNTER 2025-02-18 01:37 | Inpatient (IN) | payer MEDICAID ==
[~2025-02-18] VITALS: Ht 170.2 cm; Wt 55.7 kg
[2025-02-18] VITALS (9 sets, daily range): BP systolic 127–162; BP diastolic 75–83; PULSE 58–68; RESP 16–18; TEMP 97.8–98.5; O2SAT 98–100
[~2025-02-18 01:37] MED LIST: ALPR1TAB2 PO; LOSA-535 PO; ROSU20TA56 PO
--- NOTE | 2025-02-18 02:22 | ED.PDOC ---
GI ASSESSMENT HPI Comments 54 year old female who came to ER for abdominal pain. Patient denies any abdominal surgeries. States 2 hours prior to arrival, she developed sudden onset sharp, stabbing, abdominal pain, nonradiating, associated with nausea, vomiting with blood tinged emesis. Possibly ate spoiled food. She denies marijuana, alcohol, tobacco or other drug use. Chief Complaint: Abdominal Pain Time Seen by MD: 02:21 Reviewed Notes: [employer] Notes Allergies: Coded Allergies: Penicillins (Verified Allergy, Unknown, 01/29/25) Home Meds Reported Medications Alprazolam (Xanax) 1 Mg Tab, 1 TAB PO HS, #60 TAB 01/29/25 Losartan Potassium (Losartan Potassium) 100 Mg Tab, 1 TAB PO DAILY 01/29/25 Rosuvastatin Calcium (Rosuvastatin Calcium) 20 Mg Tab, 1 TAB PO HS 01/29/25 Information Source: Patient, Emergency Med Personnel Mode of Arrival: EMS Timing: Hours Duration: Since onset Quality: Sharp, Stabbing Vomitus: Watery, Streaking Blood Stool: Normal Severity: Moderate Recent: Possible spoiled food Recent Hx of: None Pain Location: Periumbilical Modifying Factors: Nothing Associated sign and symptoms: Nausea, Vomiting, Abdominal Pain Review of Systems REVIEW OF SYSTEMS: No fever, no chills, or fatigue HEENT: No sore throat, no earache, no congestion, no neck pain. Cardiac: No chest pain. No palpitations. Lungs: No shortness of breath, no cough. GI: (+) nausea, (+) vomiting, no diarrhea, no constipation, (+) abdominal pain : No dysuria, frequency, or urgency. No hematuria. Musculoskeletal: No joint pain , no joint swelling, no extremity edema. Skin: No rash, no itching. Neuro: No headache, no dizziness, no weakness Vital Signs Vital Signs Date Time Temp Pulse Resp B/P (MAP) Pulse Ox O2 Delivery O2 Flow Rate FiO2 02/18/25 03:59 82 16 129/80 02/18/25 03:15 Room Air* 0 21 02/18/25 03:15 97.8 100 97.8 Physical Exam General: Awake, alert and oriented. No acute distress. Skin: Skin in warm, dry and intact. Appropriate color for ethnicity. Nailbeds pink with no cyanosis. HEENT: The head is normocephalic and atraumatic. Conjunctivae are clear without exudates or hemorrhage. Sclera is non-icteric. EOM are intact. No signs of nystagmus. Eyelids are normal in appearance without swelling or lesions. Oral mucosa is pink and moist Neck: The neck is supple with normal range of motion. No JVD. Cardiac: Heart rate and rhythm are normal. No murmurs, gallops, or rubs are auscultated. Respiratory: No signs of respiratory distress. Lung sounds are clear in all lobes bilaterally without rales, rhonchi, or wheezes. Abdominal: Abdomen is soft, generally-tender without distention. Bowel sounds are present and normoactive in all four quadrants. Extremities: Upper and lower extremities are atraumatic in appearance without deformity or edema. Neurological: The patient is awake, alert and oriented to person, place, and ti me with normal speech. Speech is clear. There is no facial asymmetry. Psychiatric: Appropriate mood and affect. Good judgement and insight. No visual or auditory hallucinations. Past Medical History PAST MEDICAL HISTORY: Asthma, HTN Surgical History: Denies all surgeries OUTSOLE CEMENTER History: No Pertinent OUTSOLE CEMENTER History Family History Family History: Reviewed,noncontributory to illness Social History Smoker: Non-Smoker Alcohol: Denies ETOH Use Drugs: Denies Drug Use Lives In: Home Was a procedure done? Was a procedure done?: No GI differential Dx Differential Diagnosis: Appendicitis, Bowel Obstruction, Diverticular disease, Gastritis/PUD, Gastroenteritis, Ovarian cyst/torsion, Pancreatitis, UTI, Urolithiasis X-Ray, Labs, Meds, VS Vital Signs Date Time Temp Pulse Resp B/P (MAP) Pulse Ox O2 Delivery O2 Flow Rate FiO2 02/18/25 03:59 82 16 129/80 02/18/25 03:29 87 20 140/82 02/18/25 03:15 Room Air* 0 21 02/18/25 03:15 97.8 87 20 140/82 (101) 100 97.8 02/18/25 01:37 97.8 68 20 192/92 (125) 100 97.8 Lab Test 02/18/25 06:00 02/18/25 02:34 Range/Units Urine Color Colorless Yellow Urine Clarity Turbid H Clear Urine pH 8.5 5.0-9.0 Urine Specific [place] > 1.050 H 1.001-1.035 Urine Protein Trace H Negative Urine Ketones Negative Negative Urine Blood Negative Negative /uL Urine Nitrite Negative Negative Urine Bilirubin Negative Negative Urine Urobilinogen Normal Negative mg/dL Urine Leukocyte Esterase Negative Negative /uL Urine RBC 51 0 - 4 /hpf Urine Microscopic WBC 5 0-5 /HPF Urine Squamous Epithelial Cells Few <5 /hpf Urine Bacteria None seen None Seen /hpf Urine Mucus Few None Seen Urine Yeast (Budding) Occasional None Seen /hpf Urine Glucose Normal Normal mg/dL White Blood Count 8.3 4.4-10.8 10^3/uL Red Blood Count 4.30 4.0-5.20 10^6/uL Hemoglobin 13.0 12.2-16.2 g/dL Hematocrit 38.4 36.0-46.0 % Mean Corpuscular Volume 89.2 80.0-100.0 fL Mean Corpuscular Hemoglobin 30.2 28.0-32.0 pg Mean Corpuscular Hemoglobin Concent 33.9 32.0-36.0 g/dL Red Cell Distribution Width 14.2 11.8-14.3 % Platelet Count 301 140-450 10^3/uL Mean Platelet Volume 7.4 6.9-10.8 fL Neutrophils (%) (Auto) 79.1 37.0-80.0 % Lymphocytes (%) (Auto) 14.7 10.0-50.0 % Monocytes (%) (Auto) 5.7 0.0-12.0 % Eosinophils (%) (Auto) 0.1 0.0-7.0 % Basophils (%) (Auto) 0.4 0.0-2.0 % Neutrophils # (Auto) 6.6 1.6-8.6 10 ^3/uL Lymphocytes # (Auto) 1.2 0.4-5.4 10 ^3/uL Monocytes # (Auto) 0.5 0-1.3 10 ^3/uL Eosinophils # (Auto) 0 0-0.8 10 ^3/uL Basophils # (Auto) 0 0-0.2 10 ^3/uL Nucleated Red Blood Cells 0.1 % Sodium Level 143 136-145 mmol/L Potassium Level 3.4 L 3.5-5.1 mmol/L Chloride Level 107 98-107 mmol/L Carbon Dioxide Level 27 20-31 mmol/L Anion Gap 9 5-15 Blood Urea Nitrogen 17 9-23 mg/dL Creatinine 0.89 0.550-1.02 mg/dL Glomerular Filtration Rate Calc 78 >90 mL/min BUN/Creatinine Ratio 19.1 10.0-20.0 Serum Glucose 132 H 74-106 mg/dL Hemoglobin A1c 5.3 <5.7 % A1C Lactic Acid Level 1.8 0.4-2.0 mmol/L Calcium Level 9.6 8.7-10.4 mg/dL Total Bilirubin 0.5 0.2-1.0 mg/dL Aspartate Amino Transferase (AST) 23 13-40 U/L Alanine Aminotransferase (ALT) 44 H 7-40 U/L Alkaline Phosphatase 97 46-116 U/L Total Protein 6.8 5.7-8.2 g/dL Albumin 4.5 3.2-4.8 g/dL Triglycerides Level 51 < 150 mg/dL Cholesterol Level 163 < 200 mg/dL LDL Cholesterol 77 < 100 mg/dL HDL Cholesterol 76 H 40-59 mg/dL Lipase 41 12-53 U/L Current Medications Medications (Trade) Dose Ordered Sig/Pilar Route Start Time Stop Time Status Last Admin Morphine Sulfate 2 mg ONCE ONCE IV 02/18/25 02:15 02/18/25 02:16 DC 02/18/25 03:29 Potassium Chloride (Klor-Con Tablet) 20 meq ONCE ONCE PO 02/18/25 06:00 02/18/25 06:03 DC 02/18/25 09:03 Sodium Chloride (Saline Lock Ns) 10 ml Q8HR IV 02/18/25 06:00 02/18/25 13:34 Acetaminophen/ Hydrocodone Bitart ([place] 5/325MG Tab) 1 tab Q4HP PRN PO 02/18/25 06:00 02/18/25 19:47 Ondansetron HCl (Zofran) 4 mg Q4HP PRN IV 02/18/25 06:00 02/18/25 10:35 Morphine Sulfate 2 mg Q4HPRN PRN IV 02/18/25 06:00 02/18/25 10:35 Ceftriaxone Sodium 50 ml @ 100 mls/hr ONCE ONCE IV 02/18/25 05:45 02/18/25 06:18 DC 02/18/25 09:02 Metronidazole 100 ml @ 100 mls/hr Q8HR IV 02/18/25 06:00 7/13/25 13:33 Exam: CT CT AB PEL WITH IV CON ONLY History: Severe lower abdominal pain, nausea, vomit COMPARISON: None Technique: Multidetector spiral CT of the abdomen and pelvis was performed from lung bases to pubic symphysis. Intravenous contrast was administered during this examination. Portal venous imaging was obtained. Axial, coronal and sagittal multiplanar reformats were performed by the technologist on a separate workstation. Radiation Dose : 1. Abdomen/Pelvis: CTDIvol 6.01 mGy, DLP 321.59 mGy*cm. CONTRAST: Type of contrast: Omniscan 300 Contrast injected: 100 ml Findings: Lung Bases: No acute or significant lung base finding. Normal heart size. No p leural or pericardial effusion. Small fat containing Bochdalek type hernia within the posterior right lung base. Liver: The liver is normal in size. No focal lesions. Normal hepatic vascular enhancement. Gallbladder and Biliary Tree: Mild nonspecific gallbladder distention. The common bile duct measures 6 mm at the level of the pancreatic head and the proximal pancreatic duct measures 5 mm. Spleen: Unremarkable Pancreas: The pancreas is normal in appearance without focal lesions or abnormal enhancement. Adrenal Glands: Unremarkable Kidneys: No hydronephrosis. Bladder: Unremarkable Bowel: Small hiatal hernia. The stomach is grossly normal in appearance. Moderate increased circumferential wall thickening and intramural edema within the cecum, ascending and transverse colon suggestive of colitis. Small bowel and colon are otherwise normal in caliber and distribution. The appendix is normal. Ascites: Absent Lymphadenopathy: No mesenteric, retroperitoneal or periportal lymphadenopathy. Abdominal Wall and Mesentery: Unremarkable. Vasculature: The visualized abdominal aorta is normal in size and caliber. Atherosclerotic vascular calcifications. Abdominal and pelvic vessels demonstrate normal enhancement. Pelvic Organs: Trace likely physiologic pelvic free fluid. Increased soft tissue density within the region of the left paramedian pelvic floor contiguous with vaginal soft tissue is suggestive of mild prolapse. Musculoskeletal: No aggressive focal bony lesions, acute fractures or dislocation. IMPRESSION: 1. Nonspecific gallbladder distention and mild increased prominence of the distal common bile duct and proximal pancreatic duct. 2. Suspected colitis of the cecum, ascending and transverse colon. 3. Findings suggestive of mild vaginal prolapse. Recommend clinical correlation. Radiation optimization: All CT scans at this facility use at least one of these dose optimization techniques: automated exposure control mA and/or kV adjustment per patient size (includes targeted exams where dose is matched to clinical indication) or iterative reconstruction. Time of 1ST Reevaluation: 02:18 Reevaluation 1ST: Unchanged Patient Education/Counseling: Need For Follow Up Family Education/Counseling: No Family Present SEPSIS Sepsis Screen Date sepsis recognized/suspect: Feb 18, 2025 Time Sepsis recognized/suspect: 136 Recent Procedure: No On Antibiotic Therapy: No Respiratory Rate >20: No Heart Rate >90: No Temp<36 C (96.8 F) or >38.3 C: No SBP <90 or MAP <65 mmHG: No New Acute Mental Status Change: No Is the patient on CPAP, BIPAP,: No Physician Orders Ct Ab Pel With Iv Con Only (02/18/25 02:14) Atorvastatin (Lipitor) (02/18/25 22:00) Hydralazine Injection (Apresoline Inject (02/18/25 06:00) Albuterol Medneb (Ventolin Medneb) (02/18/25 06:00) Allergies (02/18/25 05:56) Code Status (02/18/25 05:56) Sodium Chloride Lock (Saline Lock Ns) (02/18/25 06:00) Oxygen Per Hour (02/18/25 05:56) Hydrocodone-Acet 5/325mg Tab ([place] 5/32 (02/18/25 06:00) Ondansetron Hcl (Zofran) (02/18/25 06:00) Docusate Sodium Capsule (Colace Capsule) (02/18/25 06:00) Comprehensive Metabolic Panel (02/19/25 04:00) Condition: Serious (02/18/25 05:56) Acetaminophen Tablet (Tylenol Tablet) (02/18/25 06:00) Bedrest With Bathroom Privileg (02/18/25 05:56) Morphine Sulfate Injection (02/18/25 06:00) Sequential Compression Device (02/18/25 ) Code Status (02/18/25 05:45) Oxygen By Nasal Cannula (02/18/25 05:45) Notify Md Of Changes From Base (02/18/25 05:45) Emergency Dysrhythmia Protocol (02/18/25 05:45) Metronidazole 500mg/100ml (Flagyl 500mg/ (02/18/25 06:00) Ceftriaxone 1gm/50ml D5w (Rocephin) (02/19/25 09:00) Vital Signs Date Time Temp Pulse Resp B/P (MAP) Pulse Ox O2 Delivery O2 Flow Rate FiO2 02/18/25 03:59 82 16 129/80 02/18/25 03:29 87 20 140/82 02/18/25 03:15 Room Air* 0 21 02/18/25 03:15 97.8 87 20 140/82 (101) 100 97.8 02/18/25 01:37 97.8 68 20 192/92 (125) 100 97.8 Laboratory Tests Test 02/18/25 02:34 Lactic Acid Level 1.8 mmol/L (0.4-2.0) White Blood Count 8.3 10^3/uL (4.4-10.8) Departure 1 Departure Time of Disposition: 05:11 Impression: Primary Impression: Acute abdominal pain Disposition: ADMITTED INPATIENT Condition: Stable Comments 54-year-old female with abdominal pain CT shows Nonspecific gallbladder distention and mild increased prominence of the distal common bile duct and proximal pancreatic duct. LFTs within normal limits with no gallstone We will admit for further observation, treatment and evaluation including MRCP Extensive evaluation was performed in attempt to identify or rule out: (See differential diagnosis section) The following tests were ordered, and results were reviewed by me and discussed with patient: (See diagnostic results section) The following test were independently interpreted by me: N/A I reviewed and agreed with the following test results read by other providers: N/A I reviewed the following notes from the pt's past medical encounters: January 2025 for knee pain Additional information was gathered from interviewing the following independent historians: EMS personnel Discussion of management or test interpretation with external physician/other qualified health personal care aide: N/A Decision regarding hospitalization or escalation of hospital level of care: Risk and benefits of admission for further treatment of patient's condition was considered. Due to patient's current clinical condition, high risk of decline and poor outcome if discharged and need for further inpatient management and monitoring, patient will be admitted to the hospital. Discussed with patient. Drug therapy requiring intensive monitoring for toxicity: IV morphine Parenteral controlled substances: N/A Decision regarding elective major surgery with identified patient or procedure risk factors: N/A Decision regarding emergency major surgery: N/A Decision not to resuscitate or to de-escalate care because of poor prognosis: N/A Diagnosis or treatment significantly limited by social determinants of health: N/A Critical Care Note Critical Care Time?: No Stability Stability form required: No Heart Score Heart Score: Heart Score Response (Comments) Value History N/A 0 EKG N/A 0 Age N/A 0 Risk Factors N/A 0 Troponin N/A 0 Total 0 I personally scribed for BERYL BARROW MD ([email or web address]) on 02/18/25 at 02:22. Electronically submitted by Gabriel Velazquez ([employer]). I personally scribed for BERYL BARROW MD ([email or web address]) on 02/18/25 at 02:32. Electronically submitted by Gabriel Velazquez ([email or web address]). I personally scribed for BERYL BARROW MD ([email or web address]) on 02/18/25 at 05:14. Electronically submitted by Gabriel Velazquez ([email or web address]). BERYL BARROW MD Feb 18, 2025 02:22
[2025-02-18 03:24] LABS: Hematocrit 38.4 % (36.0-46.0); Hemoglobin 13.0 g/dL (12.2-16.2); Mean Corpuscular Hemoglobin 30.2 pg (28.0-32.0); Mean Corpuscular Volume 89.2 fL (80.0-100.0); Nucleated Red Blood Cells % 0.1 %
[2025-02-18 03:26] LABS: Albumin 4.5 g/dL (3.2-4.8); Alkaline Phosphatase 97 U/L (46-116); Anion Gap 9 (5-15); BUN/Creatinine Ratio 19.1 (10.0-20.0); Bilirubin, Total 0.5 mg/dL (0.2-1.0); Blood Urea Nitrogen 17 mg/dL (9-23); Calcium 9.6 mg/dL (8.7-10.4); Carbon Dioxide 27 mmol/L (20-31); Chloride 107 mmol/L (98-107); Lipase 41 U/L (12-53); Sodium 143 mmol/L (136-145); Total Protein 6.8 g/dL (5.7-8.2)
[2025-02-18 03:27] LABS: Alanine Aminotransferase 44 U/L (7-40); Glucose 132 mg/dL (74-106); Potassium 3.4 mmol/L (3.5-5.1)
[2025-02-18] MEDS: MORPHINE SULFATE INJ 2 MG/ml SYRG IV ONE (03:29)
[2025-02-18] MEDS: IOHEXOL 300 MG/ML 100ML BOTTLE IJ ONE (03:29)
--- NOTE | 2025-02-18 05:05 | DVH ---
Exam: CT CT AB PEL WITH IV CON ONLY History: Severe lower abdominal pain, nausea, vomit COMPARISON: None Technique: Multidetector spiral CT of the abdomen and pelvis was performed from lung bases to pubic s ymphysis. Intravenous contrast was administered during this examination. Portal venous imaging was o btained. Axial, coronal and sagittal multiplanar reformats were performed by the technologist on a [employer] workstation. Radiation Dose : 1. Abdomen/Pelvis: CTDIvol 6.01 mGy, DLP 321.59 mGy*cm. CONTRAST: Type of contrast: Omniscan 300 Contrast injected: 100 ml Findings: Lung Bases: No acute or significant lung base finding. Normal heart size. No pleural or pericardial effusion. Small fat containing Bochdalek type hernia within the posterior right lung base. Liver: The liver is normal in size. No focal lesions. Normal hepatic vascular enhancement. Gallbladder and Biliary Tree: Mild nonspecific gallbladder distention. The common bile duct measures 6 mm at the level of the pancreatic head and the proximal pancreatic duct measures 5 mm. Spleen: Unremarkable Pancreas: The pancreas is normal in appearance without focal lesions or abnormal enhancement. Adrenal Glands: Unremarkable Kidneys: No hydronephrosis. Bladder: Unremarkable Bowel: Small hiatal hernia. The stomach is grossly normal in appearance. Moderate increased circumfer ential wall thickening and intramural edema within the cecum, ascending and transverse colon suggesti ve of colitis. Small bowel and colon are otherwise normal in caliber and distribution. The appendix i s normal. Ascites: Absent Lymphadenopathy: No mesenteric, retroperitoneal or periportal lymphadenopathy. Abdominal Wall and Mesentery: Unremarkable. Vasculature: The visualized abdominal aorta is normal in size and caliber. Atherosclerotic vascular c alcifications. Abdominal and pelvic vessels demonstrate normal enhancement. Pelvic Organs: Trace likely physiologic pelvic free fluid. Increased soft tissue density within the r egion of the left paramedian pelvic floor contiguous with vaginal soft tissue is suggestive of mild p rolapse. Musculoskeletal: No aggressive focal bony lesions, acute fractures or dislocation. IMPRESSION: 1. Nonspecific gallbladder distention and mild increased prominence of the distal common bile duct an d proximal pancreatic duct. 2. Suspected colitis of the cecum, ascending and transverse colon. 3. Findings suggestive of mild vaginal prolapse. Recommend clinical correlation. Radiation optimization: All CT scans at this facility use at least one of these dose optimization josse hniques: automated exposure control mA and/or kV adjustment per patient size (includes targeted exam s where dose is matched to clinical indication) or iterative reconstruction.
[2025-02-18] MEDS ORDERED: MORPHINE SULFATE INJ 2 MG/ml SYRG IV PRN ×2 (05:45→07:00)
[2025-02-18] MEDS ORDERED: NITROGLYCERIN 0.4 MG SL TAB SL PRN ×2 (05:45→07:00)
[2025-02-18] MEDS ORDERED: ALBUTEROL SULF 2.5 MG/0.5ML(0.5%) NEB SOLN NEB PRN (06:00)
[2025-02-18] MEDS ORDERED: DOCUSATE SOD 100 MG CAP PO PRN (06:00)
[2025-02-18] MEDS ORDERED: hydrALAZINE HCL 20 MG/ML VL IV PRN (06:00)
[2025-02-18 06:14] LABS: Urine Budding Yeast OCCASIONAL /hpf (None Seen); Urine Protein, UAD TRACE (Negative)
--- NOTE | 2025-02-18 07:09 | DVHHP2 ---
History of Present Illness Reason for Visit: Acute abdominal pain History of Present Illness The patient is a 54-year-old female with past medical history of asthma and hypertension who presented to [facility] ED with complaint of abdominal pain. Patient reports she experienced sudden onset of sharp, stabbing abdominal pain, nonradiating, associated with nausea, vomiting with blood tangled emesis, getting worse that prompted this visit. Patient was seen and evaluated in the ED, laboratory data shows WBC 8.3, platelets 301, sodium 143, potassium 3.4, BUN 17, creatinine 0.89, glucose 132, calcium 9.6, lipase 41, AST 23, ALT 44, blood pressure 192/92 trending down to 129/80, heart rate 82, temperature 97.8 F, O2 saturation 99% on room air. Abdomen/pelvis CT revealing nonspecific gallbladder distention and mild increased prominence of the distal common bile duct and proximal pancreatic doubt; suspected colitis of the cecum, ascending and transverse colon; findings suggestive of mild vaginal prolapse. Patient was started on IV antibiotic regimen Flagyl, IV Rocephin, please see medication orders section in the computer. On my assessment, patient denies chest pain, no dizziness, no headache, no diaphoresis, no shortness of breath, no abdominal pain, nausea, or vomiting at this moment, no fever, no chills. Patient was admitted for further evaluation and medical management. Past Medical History Asthma, HTN Past Surgical History Denies all surgeries Family History Reviewed, noncontributory to the management of this case. Past Social History The patient lives at home, denies smoking, alcohol or illicit drugs abuse. Review of Systems Constitutional: No: Fever, Chills, Sweats, Weakness, Malaise, Other Eyes: No: Pain, Vision change, Conjunctivae inflammation, Eyelid inflammation, Other, Redness ENT: No: Ear pain, Ear discharge, Nose pain, Nose discharge, Nose congestion, Mouth pain, Mouth swelling, Throat pain, Throat swelling, Other Respiratory: No: Cough, Dry, Shortness of breath, SOB with excertion, Wheezing, Hemoptysis, Pleuritic Pain, Sputum, Wheezing, Other Cardiovascular: No: Chest Pain, Palpitations, Orthopnea, Paroxysmal Noc. Dyspnea, Edema, Lt Headedness, Other Gastrointestinal: Nausea, Vomiting, Abdominal Pain; No: Diarrhea, Constipation, Melena, Hematochezia, Other Genitourinary: No Dysuria, No Frequency, No Incontinence, No Hematuria, No Retention, No Other Musculoskeletal: No: other, neck pain, shoulder pain, arm pain, back pain, hand pain, leg pain, foot pain Skin: No: Rash, Lesions, Jaundice, Bruising, Other Neurological: No: Weakness, Numbness, Incoordination, Change in speech, Confusion, Seizures, Other Allergies: Coded Allergies: Penicillins (Verified Allergy, Unknown, 01/29/25) Medications Current Medications Medications Dose Ordered Sig/Pilar Route Start Time Stop Time Status Last Admin Dose Admin Atorvastatin Calcium 20 mg HS PO 02/18/25 22:00 Hydralazine HCl 10 mg Q6HP PRN IV 02/18/25 06:00 Albuterol 2.5 mg Q4HPRN PRN NEB 02/18/25 06:00 Sodium Chloride 10 ml Q8HR IV 02/18/25 06:00 Acetaminophen/ Hydrocodone Bitart 1 tab Q4HP PRN PO 02/18/25 06:00 Ondansetron HCl 4 mg Q4HP PRN IV 02/18/25 06:00 Docusate Sodium 100 mg BIDPRN PRN PO 02/18/25 06:00 Acetaminophen 650 mg Q6HP PRN PO 02/18/25 06:00 Morphine Sulfate 2 mg Q4HPRN PRN IV 02/18/25 06:00 Nitroglycerin 0.4 mg Q5MINP PRN SL 02/18/25 05:45 Ceftriaxone Sodium 50 ml @ 100 mls/hr Q24H IV 02/19/25 09:00 Metronidazole 100 ml @ 100 mls/hr Q8HR IV 02/18/25 06:00 Exam Vital Signs Vital Signs Date Time Temp Pulse Resp B/P (MAP) Pulse Ox O2 Delivery O2 Flow Rate FiO2 02/18/25 03:59 82 16 129/80 02/18/25 03:15 Room Air* 0 21 02/18/25 03:15 97.8 100 97.8 General Appearance: Alert, Oriented X3, Cooperative, No acute distress HEENT: Atraumatic, PERRLA, EOMI, Mucous membr. moist/pink Respiratory: Clear to auscultation, Normal air movement Cardiovascular: Regular rate, Normal S1, Normal S2, No murmurs Abdominal: Normal bowel sounds, Soft, No hepatospenomegaly, No masses, Other (Reports tenderness) Extremities: No clubbing, No cyanosis, No edema, Normal pulses, No tenderness/swelling Skin: No rashes, No breakdown, No significant lesion Neuro: Normal gait, Normal speech, Strength at 5/5 X4 ext, Normal tone, Sensation intact, Cranial nerves 3-12 NL, Reflexes 2+ Psych/Mental Status: Mental status NL, Mood NL Labs/Xrays Labs Test 02/18/25 06:00 02/18/25 02:34 Range/Units Urine Color Colorless Yellow Urine Clarity Turbid H Clear Urine pH 8.5 5.0-9.0 Urine Specific Imbler > 1.050 H 1.001-1.035 Urine Protein Trace H Negative Urine Ketones Negative Negative Urine Blood Negative Negative /uL Urine Nitrite Negative Negative Urine Bilirubin Negative Negative Urine Urobilinogen Normal Negative mg/dL Urine Leukocyte Esterase Negative Negative /uL Urine RBC 51 0 - 4 /hpf Urine Microscopic WBC 5 0-5 /HPF Urine Squamous Epithelial Cells Few <5 /hpf Urine Bacteria None seen None Seen /hpf Urine Mucus Few None Seen Urine Yeast (Budding) Occasional None Seen /hpf Urine Glucose Normal Normal mg/dL White Blood Count 8.3 4.4-10.8 10^3/uL Red Blood Count 4.30 4.0-5.20 10^6/uL Hemoglobin 13.0 12.2-16.2 g/dL Hematocrit 38.4 36.0-46.0 % Mean Corpuscular Volume 89.2 80.0-100.0 fL Mean Corpuscular Hemoglobin 30.2 28.0-32.0 pg Mean Corpuscular Hemoglobin Concent 33.9 32.0-36.0 g/dL Red Cell Distribution Width 14.2 11.8-14.3 % Platelet Count 301 140-450 10^3/uL Mean Platelet Volume 7.4 6.9-10.8 fL Neutrophils (%) (Auto) 79.1 37.0-80.0 % Lymphocytes (%) (Auto) 14.7 10.0-50.0 % Monocytes (%) (Auto) 5.7 0.0-12.0 % Eosinophils (%) (Auto) 0.1 0.0-7.0 % Basophils (%) (Auto) 0.4 0.0-2.0 % Neutrophils # (Auto) 6.6 1.6-8.6 10 ^3/uL Lymphocytes # (Auto) 1.2 0.4-5.4 10 ^3/uL Monocytes # (Auto) 0.5 0-1.3 10 ^3/uL Eosinophils # (Auto) 0 0-0.8 10 ^3/uL Basophils # (Auto) 0 0-0.2 10 ^3/uL Nucleated Red Blood Cells 0.1 % Sodium Level 143 136-145 mmol/L Potassium Level 3.4 L 3.5-5.1 mmol/L Chloride Level 107 98-107 mmol/L Carbon Dioxide Level 27 20-31 mmol/L Anion Gap 9 5-15 Blood Urea Nitrogen 17 9-23 mg/dL Creatinine 0.89 0.550-1.02 mg/dL Glomerular Filtration Rate Calc 78 >90 mL/min BUN/Creatinine Ratio 19.1 10.0-20.0 Serum Glucose 132 H 74-106 mg/dL Lactic Acid Level 1.8 0.4-2.0 mmol/L Calcium Level 9.6 8.7-10.4 mg/dL Total Bilirubin 0.5 0.2-1.0 mg/dL Aspartate Amino Transferase (AST) 23 13-40 U/L Alanine Aminotransferase (ALT) 44 H 7-40 U/L Alkaline Phosphatase 97 46-116 U/L Total Protein 6.8 5.7-8.2 g/dL Albumin 4.5 3.2-4.8 g/dL Lipase 41 12-53 U/L PATIENT: DIPESH PATEL ACCT: [id number] UNIT: [id number] : 1970 LOC: ER ROOM / BED: / AGE / SEX: 54 / F ADM STATUS: REG ER SERVICE 0214 ORDERING PHYSICIAN: BERYL BARROW MD PROCEDURE(s): ABPLIV - CT AB PEL WITH IV CON ONLY REASON: Severe lower abdominal pain, nausea, vomit ORDER NUMBER(s): [id number], ACCESSION NUMBER(s): [id number] Exam: CT CT AB PEL WITH IV CON ONLY History: Severe lower abdominal pain, nausea, vomit COMPARISON: None Technique: Multidetector spiral CT of the abdomen and pelvis was performed from lung bases to pubic symphysis. Intravenous contrast was administered during this examination. Portal venous imaging was obtained. Axial, coronal and sagittal multiplanar reformats were performed by the technologist on a separate workstation. Radiation Dose: 1. Abdomen/Pelvis: CTDIvol 6.01 mGy, DLP 321.59 mGy*cm. CONTRAST: Type of contrast: Omniscan 300 Contrast injected: 100 ml Findings: Lung Bases: No acute or significant lung base finding. Normal heart size. No pleural or pericardial effusion. Small fat containing Bochdalek type hernia within the posterior right lung base. Liver: The liver is normal in size. No focal lesions. Normal hepatic vascular enhancement. Gallbladder and Biliary Tree: Mild nonspecific gallbladder distention. The common bile duct measures 6 mm at the level of the pancreatic head and the prox imal pancreatic duct measures 5 mm. Spleen: Unremarkable Pancreas: The pancreas is normal in appearance without focal lesions or abnormal enhancement. Adrenal Glands: Unremarkable Kidneys: No hydronephrosis. Bladder: Unremarkable Bowel: Small hiatal hernia. The stomach is grossly normal in appearance. Moderate increased circumferential wall thickening and intramural edema within the cecum, ascending and transverse colon suggestive of colitis. Small bowel and colon are otherwise normal in caliber and distribution. The appendix is normal. Ascites: Absent Lymphadenopathy: No mesenteric, retroperitoneal or periportal lymphadenopathy. Abdominal Wall and Mesentery: Unremarkable. Vasculature: The visualized abdominal aorta is normal in size and caliber. Atherosclerotic vascular calcifications. Abdominal and pelvic vessels demonstrate normal enhancement. Pelvic Organs: Trace likely physiologic pelvic free fluid. Increased soft tissue density within the region of the left paramedian pelvic floor contiguous with va ginal soft tissue is suggestive of mild prolapse. Musculoskeletal: No aggressive focal bony lesions, acute fractures or dislocat ion. IMPRESSION: 1. Nonspecific gallbladder distention and mild increased prominence of the distal common bile duct and proximal pancreatic duct. 2. Suspected colitis of the cecum, ascending and transverse colon. 3. Findings suggestive of mild vaginal prolapse. Recommend clinical correlation. SEPSIS Sepsis Screen Date sepsis recognized/suspect: Feb 18, 2025 Time Sepsis recognized/suspect: 136 Recent Procedure: No On Antibiotic Therapy: No Respiratory Rate >20: No Heart Rate >90: No Temp<36 C (96.8 F) or >38.3 C: No SBP <90 or MAP <65 mmHG: No New Acute Mental Status Change: No Is the patient on CPAP, BIPAP,: No Physician Orders Ct Ab Pel With Iv Con Only (02/18/25 02:14) Atorvastatin (Lipitor) (02/18/25 22:00) Hydralazine Injection (Apresoline Inject (02/18/25 06:00) Albuterol Medneb (Ventolin Medneb) (02/18/25 06:00) Allergies (02/18/25 05:56) Code Status (02/18/25 05:56) Sodium Chloride Lock (Saline Lock Ns) (02/18/25 06:00) Oxygen Per Hour (02/18/25 05:56) Hydrocodone-Acet 5/325mg Tab (Fowler 5/32 (02/18/25 06:00) Ondansetron Hcl (Zofran) (02/18/25 06:00) Docusate Sodium Capsule (Colace Capsule) (02/18/25 06:00) Complete Blood Count (02/19/25 04:00) Comprehensive Metabolic Panel (02/19/25 04:00) Condition: Serious (02/18/25 05:56) Acetaminophen Tablet (Tylenol Tablet) (02/18/25 06:00) Bedrest With Bathroom Privileg (02/18/25 05:56) Morphine Sulfate Injection (02/18/25 06:00) Sequential Compression Device (02/18/25 ) Code Status (02/18/25 05:45) Npo (Nothing By Mouth) Diet (02/18/25 Breakfast) Nitroglycerin Sublingual (Ntrostat Subli (02/18/25 05:45) Oxygen By Nasal Cannula (02/18/25 05:45) Notify Md Of Changes From Base (02/18/25 05:45) Emergency Dysrhythmia Protocol (02/18/25 05:45) Metronidazole 500mg/100ml (Flagyl 500mg/ (02/18/25 06:00) Ceftriaxone 1gm/50ml D5w (Rocephin) (02/19/25 09:00) Admit (02/18/25 06:52) Nitroglycerin Sublingual (Ntrostat Subli (02/18/25 07:00) Morphine Sulfate Injection (02/18/25 07:00) Oxygen By Nasal Cannula (02/18/25 06:52) Vital Signs Date Time Temp Pulse Resp B/P (MAP) Pulse Ox O2 Delivery O2 Flow Rate FiO2 7/13/25 03:59 82 16 129/80 02/18/25 03:29 87 20 140/82 02/18/25 03:15 Room Air* 0 21 02/18/25 03:15 97.8 87 20 140/82 (101) 100 97.8 02/18/25 01:37 97.8 68 20 192/92 (125) 100 97.8 Laboratory Tests Test 02/18/25 02:34 Lactic Acid Level 1.8 mmol/L (0.4-2.0) White Blood Count 8.3 10^3/uL (4.4-10.8) Medications Medications Dose Ordered Sig/Pilar Route Start Time Stop Time Status Last Admin Dose Admin Morphine Sulfate 2 mg ONCE ONCE IV 02/18/25 02:15 02/18/25 02:16 DC 02/18/25 03:29 2 MG Assessment/Plan Assessment/Plan Acute abdominal pain Acute colitis Hypokalemia Hyperglycemia Intractable nausea and vomiting Plan 1. Admit to med surge unit 2. Breathing treatment 3. Pain control management 4. IV antibiotic management 5. Management of fluids and electrolytes 6. Consultation for hospitalist 7. Diagnostic test abdomen/pelvis CT 8. DVT prophylaxis on SCDs 9. Repeat labs CBC, CMP in a.m. 10. Home medication reviewed and reconciled 11. Continue with current medical management 12. Treatment plan discussed with patient and RN. Patient verbalized understanding. Plan discussed with: Patient, Other (RN) My Orders Orders - GARLAND PETERSON DNP Procedure Category Date Status Time Atorvastatin (Lipitor) PHA 02/18/25 In Process 22:00 Hydralazine Injection PHA 02/18/25 In Process (Apresoline Inject 06:00 Albuterol Medneb PHA 02/18/25 In Process (Ventolin Medneb) 06:00 Allergies TIAN 02/18/25 In Process 05:56 Code Status CODE 02/18/25 Transmitted 05:56 Sodium Chloride Lock PHA 02/18/25 In Process (Saline Lock Ns) 06:00 Oxygen Per Hour RT 02/18/25 Transmitted 05:56 Hydrocodone-Acet PHA 02/18/25 In Process 5/325mg Tab (Fowler 06:00 Ondansetron Hcl PHA 02/18/25 In Process (Zofran) 06:00 Docusate Sodium PHA 02/18/25 In Process Capsule (Colace 06:00 Complete Blood Count LAB 02/19/25 Verified 04:00 Comprehensive LAB 02/19/25 Verified Metabolic Panel 04:00 Condition: Serious TIAN 02/18/25 In Process 05:56 Acetaminophen Tablet [facility] 02/18/25 In Process (Tylenol Tablet) 06:00 Bedrest With Bathroom TIAN 02/18/25 In Process Privileg 05:56 Morphine Sulfate PHA 02/18/25 In Process Injection 06:00 Sequential TIAN 02/18/25 In Process Compression Device Admit ADMIT 02/18/25 Transmitted 06:52 Nitroglycerin [facility] 02/18/25 Transmitted Sublingual (Ntrostat 07:00 Morphine Sulfate PHA 02/18/25 Transmitted Injection 07:00 Oxygen By Nasal RT 02/18/25 Transmitted Cannula 06:52 Problem List: (1) Acute abdominal pain (2) Acute colitis (3) Hypokalemia (4) Hyperglycemia (5) Intractable nausea and vomiting Date of Service: Feb 18, 2025 Billing Provider: GARLAND PETERSON DNP Common Visit Codes: [id number] INP/OBS CARE (HIGH) GARLAND PETERSON DNP Feb 18, 2025 07:09
[2025-02-18] MEDS: SODIUM CHLOR 0.9% PF (SALINE LOCK) 10ML VIAL/SYR IV SCH (09:02)
[2025-02-18] MEDS: cefTRIAXone 1GM/50ML D5W 50 ML IV ONE (09:02)
[2025-02-18] MEDS: POTASSIUM CHL 20 Meq TABLET PO ONE (09:03)
[2025-02-18] MEDS: MORPHINE SULFATE INJ 2 MG/ml SYRG IV PRN (10:35)
[2025-02-18] MEDS: ONDANSETRON HCL 4 MG/2 ML VIAL IV PRN (10:35)
[2025-02-18 11:58] LABS: Triglycerides 51 mg/dL (< 150)
[2025-02-18 12:00] LABS: Cholesterol 163 mg/dL (< 200)
[2025-02-18 12:12] LABS: HDL Cholesterol 76 mg/dL (40-59)
[2025-02-18] MEDS: LOSARTAN POTASSIUM 50 MG TAB PO SCH (13:25)
[2025-02-18] MEDS: D5W/SOD CHL 0.45% 1,000 ML IV SCH (13:34)
--- NOTE | 2025-02-18 14:40 | DVHPNRES ---
Progress Note Date Seen: Feb 18, 2025 Resident Creating Document: RAY SEPULVEDA RESIDENT Has the PT tested + for MRSA If YES, has PT been informed?: No Medical Necessity Reason Pt with a Central, PICC or Fol: No Subjective Review of Systems Patient is a 54-year-old female with past medical history of hypertension, asthma, anxiety, PTSD, and depression who presented to the ED with complaint of abdominal pain. Patient reports sudden onset of lower abdominal pain squeezing, nonradiating, intensity 10/10, with no aggravating nor relieving factors approximately 5 hours after consumption of a meal. Pain was associated nausea and approximately 6-7 emetic episodes, the latter of which she described as blood-tinged. The pain progressively worsened which prompted her to seek care. On evaluation, patient was hypertensive, with blood pressure of 192/92, with pain to palpation in lower abdominal quadrant. Initial labs show WBCs 8.3, platelets 301, lactic acid 1.6, sodium 143, potassium 3.4, BUN 17, creatinine 0.89, glucose 132, lipase 41, AST 23, and ALT 44. Abdominal CT shows nonspecific gallbladder distention, no increased prominence of the distal common bile duct and proximal pancreatic duct suspected colitis of the cecum, ascending and transverse colon. patient was admitted a started on IV antibiotics (Rocephin and Flagyll), IV Zofran, and IV Protonix. PMH:HTN, Asthma, Anxiety, PTSD, Depression, R. knee meniscus tear Family history: Mother and Father: Diabetes Mellitus type 2 Surgical history: None Social: Denies drug and alcohol use. States she was a 1/2 pack a day smoker for 15 years, quit in 2004. Currently living in [facility] with her , states she feels safe. Patient seen at bedside. Patient states she still has some nausea and abdominal pain. Currently denies further emetic episodes, chest pain, diarrhea, or palpitations. She will be advanced to clear liquid diet as tolerated. Review of systems: Constitutional: Denies weight loss, fever and chills. HEENT: Denies changes in vision and hearing. Respiratory: Denies shortness of breath and cough Cardiovascular: Denies chest discomfort or palpitations GI: Refers abdominal pain and nausea, denies abdominal distention and diarrhea : Denies dysuria and urinary frequency. Musculoskeletal: Denies myalgias and joint pain Skin: Denies rash and pruritus. Neurological: denies dizziness headache vision or hearing problems Objective vital signs Vital Sign Date Time Temp Pulse Resp B/P (MAP) Pulse Ox O2 Delivery O2 Flow Rate FiO2 02/18/25 13:25 161/87 02/18/25 11:05 65 16 02/18/25 08:50 100 Room Air 02/18/25 08:50 97.8 97.8 02/18/25 08:50 0 21 medications Current Medications Medications Dose Ordered Sig/Pilar Route Start Time Stop Time Status Last Admin Dose Admin Atorvastatin Calcium 20 mg HS PO 02/18/25 22:00 Hydralazine HCl 10 mg Q6HP PRN IV 02/18/25 06:00 Albuterol 2.5 mg Q4HPRN PRN NEB 02/18/25 06:00 Sodium Chloride 10 ml Q8HR IV 02/18/25 06:00 02/18/25 13:34 10 ML Acetaminophen/ Hydrocodone Bitart 1 tab Q4HP PRN PO 02/18/25 06:00 Ondansetron HCl 4 mg Q4HP PRN IV 02/18/25 06:00 02/18/25 10:35 4 MG Docusate Sodium 100 mg BIDPRN PRN PO 02/18/25 06:00 Acetaminophen 650 mg Q6HP PRN PO 02/18/25 06:00 Morphine Sulfate 2 mg Q4HPRN PRN IV 02/18/25 06:00 02/18/25 10:35 2 MG Ceftriaxone Sodium 50 ml @ 100 mls/hr Q24H IV 02/19/25 09:00 Metronidazole 100 ml @ 100 mls/hr Q8HR IV 02/18/25 06:00 02/18/25 13:33 100 MLS/HR Morphine Sulfate 2 mg Q30M PRN IV 02/18/25 07:00 Losartan Potassium 100 mg DAILY PO 02/18/25 11:45 02/18/25 13:25 100 MG Dextrose/Sodium Chloride 1,000 ml @ 75 mls/hr [id number] IV 02/18/25 11:45 02/18/25 13:34 75 MLS/HR Examination Physical Exam: General: The patient alert and oriented in person place and time. Patient following commands HEENT: Normocephalic, atraumatic, moist mucous membrane Respiratory/pulmonary: Clear lungs bilaterally, vesicular murmurs present in almost all lung moon, no associated crackles or wheezes. Abdomen: Pain to palpation in lower abdominal quadrants, Smith negative, McBurney negative, no palpable masses. Extremities: There is no peripheral edema present at the lower extremities. Peripheral pulses 3+ radial right, 3+ radials soft. 3+ dorsalis pedis right. 3+ dorsalis pedis left Skin: No rashes or pruritus. Neurological: Intact cranial nerves with no focal neurologic deficits laboratory and microbiology Laboratory Tests 02/18/25 02:34 Test 02/18/25 02:34 Range/Units Serum Glucose 132 H 74-106 mg/dL Problem List/Assessment/Plan Problem List/Assessment/Plan Assessment and Plan: Acute intractable abdominal pain, likely due to acute bacterial colitis -Ceftriaxone IV 1 g daily -Flagyll IV Q8hrs -Acetaminophen p.o. 650 mg q.6 -[place] PO 5 mg q4 -Abdominal CT: Suspected colitis of the cecum, ascending and transverse colon Intractable nausea and vomiting -IV fluids -Zofran IV 4 mg q4 -Advance to liquid diet as tolerated Hypertensive Urgency, resolved -Hydralazine IV 10 mg once -Losartan PO 100 mg daily Hypokalemia, 3.3 -Potassium 20 mEq PO once Hyperglycemia, 132 -Likely reactive -HbA1c: 5.3% Mild Vaginal Prolapse -Abdominal Pelvis CT: Findings suggestive of mild vaginal prolapse -Follow up with out patient OBGYN Case discussed with Dr. Barragan Goals of care discussed with patient for 20 minutes, she states she understands and agrees. FULL CODE. Plan discussed with: Patient, Other (RN) Date of Service: Feb 18, 2025 Billing Provider: ZENIA BARRAGAN MD Common Visit Codes: [id number] INP/OBS CARE(HIGH) RAY SEPULVEDA RESIDENT Feb 18, 2025 14:40 ZENIA BARRAGAN MD Feb 18, 2025 23:46
[2025-02-18 15:26] LABS: Hematocrit 40.2 % (36.0-46.0); Hemoglobin 13.3 g/dL (12.2-16.2); Mean Corpuscular Hemoglobin 29.8 pg (28.0-32.0); Mean Corpuscular Volume 90.0 fL (80.0-100.0); Nucleated Red Blood Cells % 0.1 %
[2025-02-18 15:32] LABS: Chloride 107 mmol/L (98-107); Potassium 3.7 mmol/L (3.5-5.1); Sodium 143 mmol/L (136-145)
[2025-02-18 15:33] LABS: Anion Gap 7 (5-15); Calcium 10.1 mg/dL (8.7-10.4); Carbon Dioxide 29 mmol/L (20-31)
[2025-02-18 15:38] LABS: BUN/Creatinine Ratio 14.8 (10.0-20.0); Blood Urea Nitrogen 13 mg/dL (9-23); Glucose 86 mg/dL (74-106)
[2025-02-18] MEDS: HYDROcodone-ACET 5/325MG TAB PO PRN (19:47)
[2025-02-18] MEDS: ATORVASTATIN 20 MG TAB PO SCH (21:13)
[2025-02-19] VITALS (10 sets, daily range): BP systolic 133–172; BP diastolic 66–90; PULSE 59–69; RESP 16–19; TEMP 97.8–98.3; O2SAT 98–100
[2025-02-19] MEDS: ALPRAZolam 0.5 MG TAB PO ONE ×2 (00:08→21:06)
[2025-02-19 06:18] LABS: Hematocrit 41.0 % (36.0-46.0); Hemoglobin 13.7 g/dL (12.2-16.2); Mean Corpuscular Hemoglobin 30.1 pg (28.0-32.0); Mean Corpuscular Volume 90.3 fL (80.0-100.0); Nucleated Red Blood Cells % 0.1 %
[2025-02-19 06:51] LABS: Alanine Aminotransferase 32 U/L (7-40); Anion Gap 8 (5-15); Calcium 9.7 mg/dL (8.7-10.4); Carbon Dioxide 28 mmol/L (20-31); Sodium 144 mmol/L (136-145)
[2025-02-19 06:52] LABS: BUN/Creatinine Ratio 8.7 (10.0-20.0); Glucose 88 mg/dL (74-106)
[2025-02-19 06:53] LABS: Total Protein 6.1 g/dL (5.7-8.2)
[2025-02-19 06:54] LABS: Albumin 4.0 g/dL (3.2-4.8); Bilirubin, Total 0.7 mg/dL (0.2-1.0); Blood Urea Nitrogen 8 mg/dL (9-23); Chloride 108 mmol/L (98-107); Potassium 3.3 mmol/L (3.5-5.1)
[2025-02-19 06:59] LABS: Alkaline Phosphatase 88 U/L (46-116)
[2025-02-19] MEDS: POTASSIUM EFFERVESENT TAB 25 MEQ PO ONE (08:45)
[2025-02-19] MEDS: cefTRIAXone 1GM/50ML D5W 50 ML IV SCH (08:49)
--- NOTE | 2025-02-19 13:18 | DVHPNRES ---
Progress Note Date Seen: Feb 19, 2025 Resident Creating Document: RAY SEPULVEDA RESIDENT Has the PT tested + for MRSA If YES, has PT been informed?: No Medical Necessity Reason Pt with a Central, PICC or Fol: No Subjective Review of Systems Patient is a 54-year-old female with past medical history of hypertension, asthma, anxiety, PTSD, and depression who presented to the ED with complaint of abdominal pain. Patient reports sudden onset of lower abdominal pain squeezing, nonradiating, intensity 10/10, with no aggravating nor relieving factors approximately 5 hours after consumption of a meal. Pain was associated nausea and approximately 6-7 emetic episodes, the latter of which she described as blood-tinged. The pain progressively worsened which prompted her to seek care. On evaluation, patient was hypertensive, with blood pressure of 192/92, with pain to palpation in lower abdominal quadrant. Initial labs show WBCs 8.3, platelets 301, lactic acid 1.6, sodium 143, potassium 3.4, BUN 17, creatinine 0.89, glucose 132, lipase 41, AST 23, and ALT 44. Abdominal CT shows nonspecific gallbladder distention, no increased prominence of the distal common bile duct and proximal pancreatic duct suspected colitis of the cecum, ascending and transverse colon. Patient was admitted a started on IV antibiotics (Rocephin and Flagyll), IV Zofran, and IV Protonix. Patient seen at bedside. She states she feels better, pain has improved, she is able to ambulate, passing gas but no bowel movements since arrival. Denies nausea, vomiting, abdominal pain, fever, chills, diarrhea, chest pain, and palpitations. Today's labs significant for potassium of 3.3. PO potassium ordered for repletion. She tolerated clear liquid diet, advanced to soft diet today. If she tolerates soft diet, possible discharge tomorrow. Review of Systems: Constitutional: Denies weight loss, fever and chills. HEENT: Denies changes in vision and hearing. Respiratory: Denies shortness of breath and cough Cardiovascular: Denies chest discomfort or palpitations GI: Refers mild abdominal pain, denies abdominal distention and diarrhea : Denies dysuria and urinary frequency. Musculoskeletal: Denies myalgias and joint pain Skin: Denies rash and pruritus. Neurological: denies dizziness headache vision or hearing problems Objective vital signs Vital Sign Date Time Temp Pulse Resp B/P (MAP) Pulse Ox O2 Delivery O2 Flow Rate FiO2 02/19/25 12:48 98.0 67 16 154/83 (106) 99 98.0 02/19/25 09:33 Room Air* 0 21 Total Intake and Output 02/18/25 02/18/25 02/19/25 15:00 23:00 07:00 Intake Total 225 ml 600 ml 1200 ml Balance 225 ml 600 ml 1200 ml medications Current Medications Medications Dose Ordered Sig/Pilar Route Start Time Stop Time Status Last Admin Dose Admin Atorvastatin Calcium 20 mg HS PO 02/18/25 22:00 02/18/25 21:13 20 MG Hydralazine HCl 10 mg Q6HP PRN IV 02/18/25 06:00 Albuterol 2.5 mg Q4HPRN PRN NEB 02/18/25 06:00 Sodium Chloride 10 ml Q8HR IV 02/18/25 06:00 02/19/25 05:22 10 ML Acetaminophen/ Hydrocodone Bitart 1 tab Q4HP PRN PO 02/18/25 06:00 02/19/25 12:14 1 TAB Ondansetron HCl 4 mg Q4HP PRN IV 02/18/25 06:00 02/18/25 10:35 4 MG Docusate Sodium 100 mg BIDPRN PRN PO 02/18/25 06:00 Acetaminophen 650 mg Q6HP PRN PO 02/18/25 06:00 Morphine Sulfate 2 mg Q4HPRN PRN IV 02/18/25 06:00 02/18/25 10:35 2 MG Ceftriaxone Sodium 50 ml @ 100 mls/hr Q24H IV 02/19/25 09:00 02/19/25 08:49 100 MLS/HR Metronidazole 100 ml @ 100 mls/hr Q8HR IV 02/18/25 06:00 02/19/25 05:15 100 MLS/HR Morphine Sulfate 2 mg Q30M PRN IV 02/18/25 07:00 Losartan Potassium 100 mg DAILY PO 02/18/25 11:45 02/19/25 08:48 100 MG Dextrose/Sodium Chloride 1,000 ml @ 75 mls/hr [id number] IV 02/18/25 11:45 02/18/25 13:34 75 MLS/HR Pantoprazole Sodium 40 mg DAILY@0600 PO 02/20/25 06:00 Examination General: The patient alert and oriented in person place and time. Patient following commands HEENT: Normocephalic, atraumatic, moist mucous membrane Respiratory/pulmonary: Clear lungs bilaterally, vesicular murmurs present in almost all lung moon, no associated crackles or wheezes. Abdomen: Pain to palpation in lower abdominal quadrants, Smith negative, McBurney negative, no palpable masses. Extremities: There is no peripheral edema present at the lower extremities. Peripheral pulses 3+ radial right, 3+ radials soft. 3+ dorsalis pedis right. 3+ dorsalis pedis left Skin: No rashes or pruritus. Neurological: Intact cranial nerves with no focal neurologic deficits laboratory and microbiology Laboratory Tests 02/19/25 05:34 Test 02/19/25 05:34 Range/Units Serum Glucose 88 74-106 mg/dL Problem List/Assessment/Plan Problem List/Assessment/Plan Assessment and Plan: Acute intractable abdominal pain, likely due to acute bacterial colitis -Ceftriaxone IV 1 g daily -Flagyll IV Q8hrs -Acetaminophen p.o. 650 mg q.6 -[place] PO 5 mg q4 -Abdominal/Pelvis CT: Suspected colitis of the cecum, ascending and transverse colon Intractable nausea and vomiting, resolved -IV fluids -Zofran IV 4 mg q4 -Soft mechanical diet Hypertensive Urgency, resolved Hypertension -Hydralazine IV 10 mg once -Losartan PO 100 mg daily Hypokalemia, 3.3 -Potassium 20 mEq PO once -Potassium 25 mEq PO once Hyperglycemia, 132 -Likely reactive -HbA1c: 5.3% Mild Vaginal Prolapse -Abdominal/Pelvis CT: Findings suggestive of mild vaginal prolapse -Follow up with out patient OBGYN Case discussed with Dr. Byrd. Goals of care discussed with patient for 20 minutes, she states she understands and agrees. FULL CODE. Plan discussed with: Patient, Other (RN) My Orders My Orders Orders - RAY SEPULVEDA Procedure Category Date Status Time Mechanical Soft Diet DIET 02/19/25 Transmitted Breakfast Date of Service: Feb 19, 2025 Billing Provider: RAVI BYRD MD Common Visit Codes: [id number] INP/OBS CARE(HIGH) RAY SEPULVEDA Feb 19, 2025 13:18 RAVI BYRD MD Feb 20, 2025 16:18
[2025-02-20] VITALS (8 sets, daily range): BP systolic 124–168; BP diastolic 80–92; PULSE 54–124; RESP 17–99; TEMP 96.5–98.3; O2SAT 99–100
[2025-02-20 06:21] LABS: Hematocrit 42.1 % (36.0-46.0); Hemoglobin 14.0 g/dL (12.2-16.2); Mean Corpuscular Hemoglobin 29.9 pg (28.0-32.0); Mean Corpuscular Volume 89.5 fL (80.0-100.0); Nucleated Red Blood Cells % 0.1 %
[2025-02-20 06:28] LABS: Sodium 142 mmol/L (136-145)
[2025-02-20 06:29] LABS: Anion Gap 9 (5-15); Calcium 9.3 mg/dL (8.7-10.4); Carbon Dioxide 26 mmol/L (20-31); Chloride 107 mmol/L (98-107); Potassium 3.5 mmol/L (3.5-5.1)
[2025-02-20 06:34] LABS: BUN/Creatinine Ratio 12.0 (10.0-20.0); Blood Urea Nitrogen 9 mg/dL (9-23); Glucose 93 mg/dL (74-106)
[2025-02-20] MEDS: PANTOPRAZOLE 40 MG TAB PO SCH (06:40)
[2025-02-20] MEDS ORDERED: AUG875T PO (10:18)
[2025-02-20] MEDS ORDERED: FAMO20TA10 PO (10:18)
--- NOTE | 2025-02-20 10:55 | DVHDSRES ---
Discharge Summary Date of Admission Resident Creating Document: RAY SEPULVEDA RESIDENT Feb 18, 2025 at 06:52 Date of Discharge: Feb 20, 2025 Admitting Diagnosis Intractable nausea and vomiting Labs/Diagnostic Data: Laboratory Results Test 02/20/25 05:26 02/19/25 05:34 02/18/25 06:00 02/18/25 02:34 White Blood Count 4.4 10^3/uL (4.4-10.8) Red Blood Count 4.70 10^6/uL (4.0-5.20) Hemoglobin 14.0 g/dL (12.2-16.2) Hematocrit 42.1 % (36.0-46.0) Mean Corpuscular Volume 89.5 fL (80.0-100.0) Mean Corpuscular Hemoglobin 29.9 pg (28.0-32.0) Mean Corpuscular Hemoglobin Concent 33.4 g/dL (32.0-36.0) Red Cell Distribution Width 14.1 % (11.8-14.3) Platelet Count 257 10^3/uL (140-450) Mean Platelet Volume 7.4 fL (6.9-10.8) Neutrophils (%) (Auto) 60.8 % (37.0-80.0) Lymphocytes (%) (Auto) 27.4 % (10.0-50.0) Monocytes (%) (Auto) 10.0 % (0.0-12.0) Eosinophils (%) (Auto) 1.2 % (0.0-7.0) Basophils (%) (Auto) 0.6 % (0.0-2.0) Neutrophils # (Auto) 2.6 10 ^3/uL (1.6-8.6) Lymphocytes # (Auto) 1.2 10 ^3/uL (0.4-5.4) Monocytes # (Auto) 0.4 10 ^3/uL (0-1.3) Eosinophils # (Auto) 0.1 10 ^3/uL (0-0.8) Basophils # (Auto) 0 10 ^3/uL (0-0.2) Nucleated Red Blood Cells 0.1 % Sodium Level 142 mmol/L (136-145) Potassium Level 3.5 mmol/L (3.5-5.1) Chloride Level 107 mmol/L (98-107) Carbon Dioxide Level 26 mmol/L (20-31) Anion Gap 9 (5-15) Blood Urea Nitrogen 9 mg/dL (9-23) Creatinine 0.75 mg/dL (0.550-1.02) Glomerular Filtration Rate Calc 96 mL/min (>90) BUN/Creatinine Ratio 12.0 (10.0-20.0) Serum Glucose 93 mg/dL (74-106) Calcium Level 9.3 mg/dL (8.7-10.4) Total Bilirubin 0.7 mg/dL (0.2-1.0) Aspartate Amino Transferase (AST) 16 U/L (13-40) Alanine Aminotransferase (ALT) 32 U/L (7-40) Alkaline Phosphatase 88 U/L (46-116) Total Protein 6.1 g/dL (5.7-8.2) Albumin 4.0 g/dL (3.2-4.8) Urine Color Colorless (Yellow) Urine Clarity Turbid (Clear) Urine pH 8.5 (5.0-9.0) Urine Specific [place] > 1.050 (1.001-1.035) Urine Protein Trace (Negative) Urine Ketones Negative (Negative) Urine Blood Negative /uL (Negative) Urine Nitrite Negative (Negative) Urine Bilirubin Negative (Negative) Urine Urobilinogen Normal mg/dL (Negative) Urine Leukocyte Esterase Negative /uL (Negative) Urine RBC 51 /hpf (0 - 4) Urine Microscopic WBC 5 /HPF (0-5) Urine Squamous Epithelial Cells Few /hpf (<5) Urine Bacteria None seen /hpf (None Seen) Urine Mucus Few (None Seen) Urine Yeast (Budding) Occasional /hpf (None Urine Glucose Normal mg/dL (Normal) Hemoglobin A1c 5.3 % A1C (<5.7) Lactic Acid Level 1.8 mmol/L (0.4-2.0) Triglycerides Level 51 mg/dL (< 150) Cholesterol Level 163 mg/dL (< 200) LDL Cholesterol 77 mg/dL (< 100) HDL Cholesterol 76 mg/dL (40-59) Lipase 41 U/L (12-53) Other Laboratory Tests 02/20/25 05:26 Brief Hx & Hospital Course: Patient is a 54-year-old female with past medical history of hypertension, asthma, anxiety, PTSD, and depression who presented to the ED with complaint of abdominal pain. Patient reports sudden onset of lower abdominal pain described as squeezing, nonradiating, intensity 10/10, with no aggravating nor relieving factors approximately 5 hours after consumption of a meal. Pain was associated with nausea and approximately 6-7 emetic episodes, the latter of which she described as blood-tinged. The pain progressively worsened which prompted her to seek care. On evaluation, patient was hypertensive, with blood pressure of 192/92, with pain to palpation in lower abdominal quadrant. Initial labs show WBCs 8.3, platelets 301, lactic acid 1.6, sodium 143, potassium 3.4, BUN 17, creatinine 0.89, glucose 132, lipase 41, AST 23, and ALT 44. Abdominal CT shows nonspecific gallbladder distention, no increased prominence of the distal common bile duct and proximal pancreatic duct suspected colitis of the cecum, ascending and transverse colon. Patient was admitted a started on IV antibiotics (Rocephin and Flagyll), IV Zofran, and IV Protonix. On evaluation, patient was nauseous, was intense abdominal pain on palpation to lower quadrants, she denied further emetic episodes, diarrhea, chest pain or palpitations. Once the nausea abated, she as started on clear liquid diet, which she tolerated. On day two, follow up labs were significant for potassium of 3.3, which was subsequently repleted. She was advanced to soft mechanical diet, after which she complained of nausea and abdominal pain. On evaluation today, patient states she feels better, is able to ambulate, the pain has improved, and she is tolerating soft mechanical diet. She currently denies fever, nausea, vomiting, abdominal pain, and bowel movements. Follow up labs today are within normal range and vitals have remained stable. She is considered stable for discharge home to complete antibiotic regimen with Augmentin PO and with orders to follow up in [place] clinic in 2 weeks. Physical exam: General: The patient alert and oriented in person place and time. Patient following commands HEENT: Normocephalic, atraumatic, moist mucous membrane Respiratory/pulmonary: Clear lungs bilaterally, vesicular murmurs present in almost all lung moon, no associated crackles or wheezes. Abdomen: Normal bowel sounds, no pain to palpation in abdominal quadrants, Smith negative, McBurney negative, no palpable masses. Extremities: There is no peripheral edema present at the lower extremities. Peripheral pulses 3+ radial right, 3+ radials soft. 3+ dorsalis pedis right. 3+ dorsalis pedis left Skin: No rashes or pruritus. Neurological: Intact cranial nerves with no focal neurologic deficits Case discussed with Dr. Byrd. Goals of care discussed with the patient for over 20 minutes. She states she understands goals, recommendations, and agrees. Operations or Procedures Exam: CT CT AB PEL WITH IV CON ONLY History: Severe lower abdominal pain, nausea, vomit COMPARISON: None Technique: Multidetector spiral CT of the abdomen and pelvis was performed from lung bases to pubic symphysis. Intravenous contrast was administered during this examination. Portal venous imaging was obtained. Axial, coronal and sagittal multiplanar reformats were performed by the technologist on a separate workstation. Radiation Dose : 1. Abdomen/Pelvis: CTDIvol 6.01 mGy, DLP 321.59 mGy*cm. CONTRAST: Type of contrast: Omniscan 300 Contrast injected: 100 ml Findings: Lung Bases: No acute or significant lung base finding. Normal heart size. No pleural or pericardial effusion. Small fat containing Bochdalek type hernia within the posterior right lung base. Liver: The liver is normal in size. No focal lesions. Normal hepatic vascular enhancement. Gallbladder and Biliary Tree: Mild nonspecific gallbladder distention. The common bile duct measures 6 mm at the level of the pancreatic head and the proximal pancreatic duct measures 5 mm. Spleen: Unremarkable Pancreas: The pancreas is normal in appearance without focal lesions or abnormal enhancement. Adrenal Glands: Unremarkable Kidneys: No hydronephrosis. Bladder: Unremarkable Bowel: Small hiatal hernia. The stomach is grossly normal in appearance. Moderate increased circumferential wall thickening and intramural edema within the cecum, ascending and transverse colon suggestive of colitis. Small bowel and colon are otherwise normal in caliber and distribution. The appendix is normal. Ascites: Absent Lymphadenopathy: No mesenteric, retroperitoneal or periportal lymphadenopathy. Abdominal Wall and Mesentery: Unremarkable. Vasculature: The visualized abdominal aorta is normal in size and caliber. Atherosclerotic vascular calcifications. Abdominal and pelvic vessels demonstrate normal enhancement. Pelvic Organs: Trace likely physiologic pelvic free fluid. Increased soft tissue density within the region of the left paramedian pelvic floor contiguous with vaginal soft tissue is suggestive of mild prolapse. Musculoskeletal: No aggressive focal bony lesions, acute fractures or dislocation. IMPRESSION: 1. Nonspecific gallbladder distention and mild increased prominence of the distal common bile duct and proximal pancreatic duct. 2. Suspected colitis of the cecum, ascending and transverse colon. 3. Findings suggestive of mild vaginal prolapse. Recommend clinical correlation. Radiation optimization: All CT scans at this facility use at least one of these dose optimization techniques: automated exposure control mA and/or kV adjustment per patient size (includes targeted exams where dose is matched to clinical indication) or iterative reconstruction. Condition at Discharge: Stable Final Diagnosis/Problems List Acute intractable abdominal pain, likely due to acute bacterial colitis Intractable nausea and vomiting, resolved Hypertensive Urgency, resolved Hypertension Hypokalemia, resolved Hyperglycemia, likely reactive Mild Vaginal Prolapse Discharge Disposition: Home Discharge Instruct/Medications Diet: Cardiac 2g Na,low cholest Activity: No Restrictions, As Tolerated Follow Up/Referral: Follow up with in [place] in 2 weeks Medications: Augmentin Pepcid Scheduled Alprazolam (Xanax), 1 TAB PO HS, (Reported) Amoxicillin & Pot Clavulanate (Augmentin Tablet), 875 MG PO BID Famotidine (Pepcid Tablet), 1 TAB PO BID Losartan Potassium (Losartan Potassium), 1 TAB PO DAILY, (Reported) Rosuvastatin Calcium (Rosuvastatin Calcium), 1 TAB PO HS, (Reported) Discharge Statement: "Patient was advised to return to the ER or call 911 if any headaches, dizziness, shortness of breath, chest pain, abdominal pain, bleeding, fevers, or worsening of medical condition. Patient was counseled about treatment plan, medications, possible side effects, patientverbalized understanding. All questions were answered to the best of my ability. This discharge took greater then 30 minutes in planning, reviewing documentation, counseling the patient, and discussing with other team members." ASSESSMENT ASSESSMENT Assessment Acute intractable abdominal, likely due to acute bacterial colitis Date of Service: Feb 20, 2025 Billing Provider: RAVI BYRD MD Common Visit Codes: 54304-[id number] DISCH DAY >30min RAY SEPULVEDA RESIDENT Feb 20, 2025 10:55 RAVI BYRD MD Feb 21, 2025 21:40
[2025-02-20] MEDS: ACETAMINOPHEN 325 MG TAB PO PRN (11:27)
== END 2025-02-20 12:15 | disposition home or self-care (01) | DRG 248 ==
LOC: EDUNIT# 01:37 → EDBD 01:37 → ER 01:37 → UNDOADMIN 05:45 → OVERFLOW 05:45 → CENTRAL 12:43
PROVIDERS: ADMIT Student in an Organized Health Care Education/Training Program; ATTEND Student in an Organized Health Care Education/Training Program
DX: A04.9 Bacterial intestinal infection, unspecified (principal); E87.6 Hypokalemia; I16.0 Hypertensive urgency; R73.9 Hyperglycemia, unspecified; N81.10 Cystocele, unspecified; J45.909 Unspecified asthma, uncomplicated; I10 Essential (primary) hypertension; K82.8 Other specified diseases of gallbladder; Z88.0 Allergy status to penicillin; Z79.899 Other long term (current) drug therapy
CPT/HCPCS: 36415; 74177; 80048; 80053; 80061; 81001; 83036; 83605; 83690; 85025; 87081; G0378; J2405; J3490

== ENCOUNTER 2025-06-22 06:13 | Emergency (ER) | payer MEDICAID ==
[~2025-06-22] VITALS: Ht 162.6 cm; Wt 59.8 kg
[~2025-06-22 06:13] MED LIST changes: +AUG875T PO
--- NOTE | 2025-06-22 07:01 | ED.PDOC ---
Musculoskeletal HPI Comments A 55 YEAR OLD FEMALE PRESENTS TO THE ED WITH COMPLAINT OF RIGHT KNEE PAIN. PATIENT STATES SHE ACCIDENTALLY TWISTED HER RIGHT KNEE WHILE AT THE [employer] STORE YESTERDAY. PATIENT REPORTS SHE IS NOW EXPERIENCING RIGHT KNEE PAIN IN HIS WORSE WITH MOVEMENT. PATIENT DENIES FEVER, CHILLS, SHORTNESS OF BREATH, CHEST PAIN, ABDOMINAL PAIN, NAUSEA, VOMITING, HEADACHE, OR OTHER COMPLAINTS. NO OTHER SYMPTOMS OR MODIFYING FACTORS AT THIS TIME. PATIENT IS ALERT, ORIENTED X 4, AND HAS STEADY GAIT. Chief Complaint: Lower Extremity Time Seen by MD: 06:28 Reviewed Notes: Nurses Notes, Medications, Allergies Allergies: Coded Allergies: Penicillins (Verified Allergy, Unknown, 01/29/25) Home Meds Active Scripts Amoxicillin & Pot Clavulanate (AUGMENTIN TABLET) 875 Mg Tb, 875 MG PO BID for 5 Days, #10 TAB Prov:GLEN BENSON RESIDENT 02/20/25 Reported Medications Alprazolam (Xanax) 1 Mg Tab, 1 TAB PO HS, #60 TAB 01/29/25 Losartan Potassium (Losartan Potassium) 100 Mg Tab, 1 TAB PO DAILY 01/29/25 Rosuvastatin Calcium (Rosuvastatin Calcium) 20 Mg Tab, 1 TAB PO HS 01/29/25 Information Source: Patient Mode of Arrival: Ambulatory Location: Right Extremity Location: Knee Timing: Days Prehospital treatment: None Severity: Moderate Able to Move Extremity: Yes Bear Weight: Limited Pain: Moderate Mechanism: Twisting Circumstances: Accident Onset of Symptoms: After Trauma Symptoms: Pain DVT Risk Factors: NONE Last Tetanus: Unknown Associated signs and symptoms: Knee pain Past Medical History PAST MEDICAL HISTORY: Asthma, HTN Surgical History: Denies all surgeries CREDIT ASSESSMENT ANALYST History: No Pertinent CREDIT ASSESSMENT ANALYST History Family History Family History: Reviewed,noncontributory to illness Social History Smoker: Non-Smoker Alcohol: Denies ETOH Use Drugs: Denies Drug Use Lives In: Home Constitutional: denies: chills, diaphoresis, fatigue, fever, malaise, sweats, weakness, others EENTM: denies: blurred vision, double vision, ear bleeding, ear discharge, ear drainage, ear pain, ear ringing, eye pain, eye redness, hearing loss, mouth pain, mouth swelling, nasal discharge, nose bleeding, nose congestion, nose pain, photophobia, tearing, throat pain, throat swelling, voice changes, others Respiratory: denies: cough, hemoptysis, orthopnea, SOB at rest, shortness of breath, SOB with excertion, stridor, wheezing, others Cardiovascular: denies: chest pain, dizzy spells, diaphoresis, Dyspnea on exertion, edema, irregular heart beat, left arm pain, lightheadedness, palpitations, PND, syncope, others Gastrointestinal: denies: abdomen distended, abdominal pain, blood streaked bowels, constipated, diarrhea, dysphagia, difficulty swallowing, hematemesis, melena, nausea, poor appetite, poor fluid intake, rectal bleeding, rectal pain, vomiting, others Genitourinary: denies: abnormal vagina bleeding, burning, dyspareunia, dysuria, flank pain, frequency, hematuria, incontinence, pain, , vagina discharge, urgency, others Neurological: denies: dizziness, fainting, headache, left sided numbness, left sided weakness, numbness, paresthesia, pre-existing deficit, right sided numbness, right sided weakness, seizure, speech problems, tingling, tremors, weakness, others Musculoskeletal: reports: joint pain, joint swelling, others (RIGHT KNEE PAIN); denies: back pain, gout, muscle pain, muscle stiffness, neck pain Integumetry: denies: bruises, change in color, change in hair/nails, dryness, laceration, lesions, lumps, rash, wounds, others Allergic/Immunocompromised: denies: Difficulty Healing, Frequent Infections, Hives, Itching, others Hematologic/Lymphatic: denies: anemia, blood clots, easy bleeding, easy bruising, swollen glands, others Endocrine: denies: excessive hunger, excessive sweating, excessive thirst, excessive urination, flushing, intolerance to cold, intolerance to heat, unexplained weight gain, unexplained weight loss, others Psychiatric: denies: anxiety, bipolar disorder, depression, hopeless, panic disorder, schizophrenia, sleepless, suicidal, others All Other Systems: Reviewed and Negative Physical Exam General Appearance: No Apparent Distress, Normal HEENT: Normal ENT Inspection, PERRL/EOMI, Pharynx Normal, TMs Normal Neck: Full Range of Motion, Non-Tender, Normal, Normal Inspection Respiratory: Chest Non-Tender, Lungs Clear, No Accessory Muscle Use, No Respiratory Distress, Normal Breath Sounds Cardiovascular: No Edema, No JVD, No Murmur, No Gallop, Normal Peripheral Pulses, Regular Rate/Rhythm Breast Exam: Deferred Gastrointestinal: No Organomegaly, Non Tender, No Pulsatile Mass, Normal Bowel Sounds, Soft Genitalia: Deferred Pelvic: Deferred Rectal: Deferred Extremities: Decreased range of motion, No calf tenderness, Normal capillary refill, No pedal edema, Tender (AND MILD SWELLING ON RIGHT KNEE, NO BONY TENDERNESS AND DEFORMITY. ) Musculoskeletal : Apperance: Normal Neurologic: Alert, telemetry tech II-XII nml as Tested, No Motor Deficits, Normal Affect, Normal Mood, No Sensory Deficits Cerebellar Function: Normal Reflexes: Normal Skin: Dry, Normal Color, Warm Peripheral Pulses: 2+ carotid (R), 2+ carotid (L), 2+ dorsalis pedis (R), 2+ dorsalis pedis (L) Lymphatic: No Adenopathy Was a procedure done? Was a procedure done?: No Differential Diagnosis EXT Differential Diagnosis: Fracture, Sprain, Dislocation, DJD, Contusion, Strain, Arthritis, Bursitis X-Ray, Labs, Meds, VS Vital Signs Date Time Temp Pulse Resp B/P (MAP) Pulse Ox O2 Delivery O2 Flow Rate FiO2 06/22/25 06:22 98.3 79 20 121/97 100 98.3 X-Ray, Labs, Meds, VS Comment EXTERNAL MEDICAL RECORDS REVIEWED: [NONE] INDEPENDENT HISTORIANS: [NONE] SOCIAL DETERMINANTS OF HEALTH: [NONE] LABS ORDERED: NONE REVIEWED AND INTERPRETED RESULTS: NONE IMAGING ORDERED: XR KNEE RT: [INTERPRETED BY ME. NO ACUTE FINDINGS. NO FRACTURES OR DISLOCATION. PENDING RADIOLOGIST REPORT.] TREATMENTS ORDERED: NORCO 5/325 MG PO, JACOB WRAP APPLIED TO PATIENT'S RIGHT KNEE. PROCEDURES PERFORMED: NONE CRITICAL CARE TIME: NONE I HAVE DISCUSSED THE PATIENT WITH THE ATTENDING PHYSICIAN DR. SHARPE AND HE AGREES WITH THE PATIENT'S PLAN OF CARE AND DISPOSITION. BASED ON HISTORY OF PRESENT ILLNESS, AND PHYSICAL EXAM, PATIENT WILL BE DISCHARGED HOME. DISCUSSED PLAN FOR DISCHARGE HOME WITH RX [IBUPROFEN 800 MG]. M EDICATION WARNINGS GIVEN. SHARED DECISION MAKING: DISCUSSED WITH PATIENT THAT THEIR WORKUP WAS NORMAL. PATIENT INSTRUCTED TO FOLLOW UP WITH PRIMARY CARE PROVIDER IN 1-2 DAYS FOR RE- EVALUATION OF SYMPTOMS. PATIENT VERBALIZES UNDERSTANDING TO RETURN TO ED FOR NEW OR WORSENING SYMPTOMS OR IF FOLLOW UP WITH PCP CANNOT BE OBTAINED. PATIENT FEELS COMFORTABLE GOING HOME AT THIS TIME. ALL QUESTIONS ADDRESSED AT TIME OF DISCHARGE. Images Reviewed?: Images reviewed and evaluated by me Time of 1ST Reevaluation: 07:30 Reevaluation 1ST: Improved Patient Education/Counseling: Diagnosis, Treatment, Need For Follow Up Family Education/Counseling: Diagnosis, Treatment, Need For Follow Up Medical Screening: No EMC Exist At This Time Departure 1 Departure Time of Disposition: 07:30 Impression: Primary Impression: Sprain of right knee Qualified Codes: [id number] - Sprain of other specified parts of right knee, initial encounter Disposition: HOME / SELF CARE / HOMELESS Condition: Stable Additional Instructions: FOLLOW-UP WITH PCP IN 1 TO 2 DAYS. TAKE MEDICATIONS PRESCRIBED. RETURN TO ED FOR ANY NEW OR WORSENING SYMPTOMS. e-Prescriptions Ibuprofen (Ibuprofen) 800 Mg Tab 1 TAB PO TID, #30 TAB Prov: LEONEL CAMPBELL 06/22/25 Discharged With: Self Critical Care Note Critical Care Time?: No Stability Stability form required: No I personally scribed for LEONEL CAMPBELL ([email or web address]) on 06/22/25 at 07:01. Electronically submitted by Joshua Espinoza (Slide). I personally scribed for LEONEL CAMPBELL ([email or web address]) on 06/22/25 at 07:06. Electronically submitted by Joshua Espinoza (Slide). I personally scribed for LEONEL CAMPBELL ([email or web address]) on 06/22/25 at 07:28. Electronically submitted by Joshua Espinoza (Slide). LEONEL CAMPBELL Jun 22, 2025 07:01
[2025-06-22] MEDS ORDERED: IBUP-1456 PO (07:31)
[2025-06-22] MEDS: HYDROcodone-ACET 5/325MG TAB PO ONE (07:37)
[2025-06-22 07:41] VITALS: BP 147/69; PULSE 65; RESP 15; TEMP 97.7; O2SAT 98
--- NOTE | 2025-06-22 08:15 | DVH ---
EXAM: XY R KNEE 3V XRAY CLINICAL INDICATION: TWISTED RIGHT KNEE TECHNIQUE: XY R KNEE 3V XRAY Comparison: XY R KNEE 3V XRAY on DOS: 04/18/25, MRI RT KNEE WITH OUT CON on DOS: 01/30/25, XY R KNEE 3V XRAY on DOS: 01/29/25, XR KNEE COMPLETE RT on DOS: 01/16/25 FINDINGS/IMPRESSION: There is no evidence of acute fracture or dislocation. The visualized joint space is well maintained. The alignment is anatomical. There is no radiopaque foreign body.
== END 2025-06-22 07:42 | disposition home or self-care (01) ==
LOC: ER 06:13
DX: S83.91XA Sprain of unspecified site of right knee, initial encounter (principal); I10 Essential (primary) hypertension; J45.909 Unspecified asthma, uncomplicated; Z79.899 Other long term (current) drug therapy; Z88.0 Allergy status to penicillin; X50.1XXA Overexertion from prolonged static or awkward postures, initial encounter; Y93.89 Activity, other specified; Y92.512 Supermarket, store or market as the place of occurrence of the external cause; Y99.8 Other external cause status
CPT/HCPCS: 73562